=== PATIENT | male | born 1930 | race Caucasian/White ===

== ENCOUNTER 2018-03-07 11:55 | Inpatient (IN) ==
[2018-03-07] MEDS ORDERED: 0.9 % Sodium Chloride 500 ML IVC ONE ×2 (12:06→13:30)
--- NOTE | 2018-03-07 12:39 | Emergency Department Note ---
Disposition Clinical Impression: Upper gastrointestinal hemorrhage, Hiatal hernia, Hyperglycemia, Acute kidney injury GERD (gastroesophageal reflux disease) Qualifiers: Esophagitis presence: esophagitis presence not specified Qualified Code(s): K21.9 - Gastro-esophageal reflux disease without esophagitis Coumarin adverse reaction Qualifiers: Encounter type: initial encounter Qualified Code(s): T45.515A - Adverse effect of anticoagulants, initial encounter Disposition: Admitted As Inpatient Referrals: Jay Silveira MD [Primary Care Provider] - Forms: ED Satisfaction Letter General Adult HPI - General Chief complaint: ED GI Bleed Stated complaint: "vomiting black, stool black" Time Seen by Provider: 03/07/18 12:03 Source: patient, family Mode of arrival: ambulatory Limitations: no limitations Nursing Notes Reviewed: Yes Vital Signs Reviewed: Yes - History of Present Illness HPI Narrative: Patient is an 87-year-old white male with a history of DVT on Coumadin and a baby aspirin daily no prior history of GI bleeding who is brought to the emergency department today by his daughter for an isolated episode of vomiting coffee ground emesis which occurred yesterday at approximately 4 PM followed by tarry black stool for the past 2 days. Patient states he has been struggling with what he defines as dizziness for the past 4-6 weeks and has been seen by his family doctor for this and has referral to neurology pending but states over the past 2-3 days he has been feeling more weak and generally fatigued. Patient denies any chest pain pressure or heaviness, no palpitations, no shortness of breath, no diaphoresis, no abdominal pain or cramping, no flank pain. Patient denies any bowel changes in regards to the consistency of his stool but has had tarry black stool since yesterday. Patient denies any bright red blood per rectum. Patient has never had any GI bleeding or need for a GI specialist. No recent changes to his Coumadin levels. Patient denies any history of falls or trauma. No syncope. Patient appears in no acute distress on initial assessment he is quite talkative interactive and having no pain or discomfort at this time patient's initial vitals were tachycardic but blood pressure while I was in the room was 130/65. Patient states that he has not really had anything to eat since he vomited yesterday at 4:00 and has not taken his morning diabetic medications. Patient's only complaint at this time is that he feels generally weak. Pain Scale: 0 - Related Data Home Medications Medication Instructions Recorded Confirmed Aspirin 81 mg PO DAILY 06/24/15 03/07/18 Carvedilol [Coreg] 3.125 mg PO BIDWM 06/24/15 03/07/18 Ferrous Sulfate 325 mg PO DAILY 06/24/15 03/07/18 Insulin DETEMIR [Levemir] 43 unit SQ BID 06/24/15 03/07/18 Insulin LISPRO [Humalog] 10 unit SQ DAILY 06/24/15 03/07/18 Isosorbide DInitrate [Isosorbide 10 mg PO BID 06/24/15 03/07/18 Dinitrate] LORazepam [Ativan] 0.5 mg PO Q8H PRN 06/24/15 03/07/18 Omeprazole [PriLOSEC] 20 mg PO DAILY 06/24/15 03/07/18 Warfarin [Coumadin] 3 mg PO SUMOTUWEFRSA 06/24/15 03/07/18 Nitroglycerin [Nitrostat] 0.4 mg SL Q5M PRN 03/07/18 03/07/18 Warfarin [Coumadin] 1.5 mg PO TH 03/07/18 03/07/18 Allergies Allergy/AdvReac Type Severity Reaction Status Date / Time ezetimibe [From Zetia] AdvReac Seizure Verified 03/07/18 12:01 lisinopril [From Prinivil] AdvReac Cough Verified 03/07/18 12:01 Hnarcpf-Vaf-Dod Reductase AdvReac Seizure Verified 03/07/18 12:01 Inhibitor [Statins] All systems ED: reviewed and negative except as stated. Review of Systems: As Per HPI Past Medical History - Past Medical History Medical history: Reports: coronary artery disease, DVT, diabetes, GERD, myocardial infarction, renal disease Surgical history: Reports: herniorrhaphy Psychiatric history: Reports: anxiety, panic disorder - Social History Smoking Status: Never smoker Smokeless Tobacco Status: No Alcohol use: Reports: none Drug use: Reports: none Physical Exam - General Limitations: no limitations General appearance: alert, in no apparent distress - Head Head exam: atraumatic, normocephalic, normal inspection - Eye Eye exam: Present: normal appearance, PERRL, EOMI. Absent: scleral icterus - ENT ENT exam: normal exam, normal oropharynx, mucous membranes moist - Neck Neck exam: Present: normal inspection, full ROM. Absent: lymphadenopathy, thyromegaly - Chest Chest inspection: Present: normal inspection, symmetric chest wall rise - Respiratory Respiratory exam: Present: normal lung sounds bilaterally. Absent: respiratory distress, wheezes - Cardiovascular Cardiovascular exam: Present: regular rate, normal rhythm, normal heart sounds - Abdominal Exam Abdominal exam: Present: soft, Non-Tender, normal bowel sounds. Absent: tenderness, distention, guarding, rebound, rigidity - Extremities Exam Extremities exam: Present: normal inspection. Absent: pedal edema, calf tenderness - Back Exam Back exam: Present: normal inspection. Absent: CVA tenderness (R), CVA tenderness (L), paraspinal tenderness, vertebral tenderness, rashes - Neurological Exam Neurological exam: Present: alert, oriented X3, CN II-XII intact, normal gait, reflexes normal. Absent: motor sensory deficit - Psychiatric Psychiatric exam: Present: normal affect, normal mood - Skin Skin exam: Present: warm, dry, intact, normal color, other (No easy bleeding or bruising noted on exam). Absent: rash, diaphoresis Course Course Narrative: Patient is a 87-year-old white male brought by his daughter today for an isolated episode of coffee-ground emesis associated with tarry black stool over the past 48 hours. Patient says this is been associated with gradually worsening generalized weakness and fatigue. Patient denies any symptoms of pain and no bright red blood per rectum. Patient is on aspirin one baby aspirin daily, as well as Coumadin for DVT prevention. Patient with no prior history of GI bleeding or GI intervention. Patient's blood pressure is stable at this time. Orders have been placed including 2 large bore IVs be placed on potline monitor and continuous pulse ox IV fluids initiated and full assessment for GI bleeding initiated. - Reevaluation(s) Reevaluation #1: Patient remains asymptomatic resting comfortably with stable vital signs. When into the rectal exam. Patient has no evidence of hemorrhoids or gross bright red blood per rectum. No rectal masses palpated on internal exam. He should with lack appearing stool that was guaiac positive. Discussed this with patient and daughter. Will add additional IV fluids based on patient's current renal function elevated BUN/creatinine be secondary to upper GI bleeding. Patient made nothing by mouth and will obtain CT scan of the abdomen and pelvis. Notified family that patient will be admitted for further evaluation of GI bleeding. Time: 13:34 Reevaluation #2: Patient remains resting comfortably with daughter at bedside, vital signs are stable. While in the room heart rate was 73 with a stable blood pressure. Patient has received 1 fluid bolus and will receive second. Reviewed results of CAT scan with patient and daughter which was within normal limits. Likely upper GI bleed. Patient is nothing by mouth Coumadin been held. Case was discussed with the hospitalist to accepted the patient for admission. Type and screen is been completed patient remained dynamically stable at this time. Time: 15:18 Vital Signs Temperature 98.1 F 03/07/18 11:57 Pulse Rate 108 03/07/18 11:57 Respiratory Rate 18 03/07/18 11:57 Blood Pressure 143/96 03/07/18 11:57 O2 Sat by Pulse Oximetry 98 03/07/18 11:57 Temperature 98.1 F 03/07/18 11:57 Pulse Rate 102 03/07/18 14:29 Respiratory Rate 18 03/07/18 14:29 Blood Pressure 110/72 03/07/18 14:29 O2 Sat by Pulse Oximetry 96 03/07/18 14:29 Oxygen Delivery Oxygen Delivery Room Air Medical Decision Making - Medical Records Medical records reviewed: Yes I reviewed the patient's medical records. - Lab Data Lab results reviewed: Yes I reviewed the patient's lab results. Result diagrams: 03/07/18 12:34 03/07/18 12:34 Lab Results 03/07/18 03/07/18 03/07/18 Range/Units 12:34 12:34 12:34 WBC 12.3 H (4.3-11.1) K/mcL RBC 3.34 L (4.19-5.50) M/mcL Hgb 10.9 L (12.9-16.9) g/dL Hct 33.0 L (37.5-50.1) % MCV 98.8 (83.0-100.0) fL MCH 32.6 (28.0-33.3) pg MCHC 33.0 (31.6-35.5) g/dL RDW 14.2 (11.5-14.5) % Plt Count 301 (140-400) K/mcL MPV 9.4 (9.4-12.4) fL Immature Gran % 0.5 (0-4) % Seg Neutrophils % 62.7 % Lymphocytes % 21.8 % Monocytes % 8.8 % Eosinophils % 5.6 % Basophils % 0.6 % Neutrophils # 7.7 (1.6-8.9) K/mcL Lymphocytes # 2.7 (0.6-4.6) K/mcL Monocytes # 1.1 (0.0-1.3) K/mcL Eosinophils # 0.7 H (0.0-0.6) K/mcL Basophils # 0.1 (0.0-0.2) K/mcL PT 29.7 H (9.4-12.1) Seconds INR 2.7 APTT 34.5 (26.0-36.0) Seconds Sodium 140 (136-145) mEq/L Potassium 4.6 (3.5-5.1) mEq/L Chloride 104 (98-107) mEq/L Carbon Dioxide 25 (23-29) mEq/L BUN 71 H (8-23) mg/dL Creatinine 2.24 H (0.70-1.30) mg/dL Est GFR ( Amer) 34 L (> 60) Est GFR (Non-Af Amer) 28 L (> 60) BUN/Creatinine Ratio 32 H (6-26) Glucose 270 H (70-105) mg/dL Calculated Osmolality 320 H (280-300) Lactic Acid (0.5-2.2) mmol/L Calcium 10.2 (8.6-10.3) mg/dL Magnesium 1.7 (1.6-2.6) mg/dL Total Bilirubin 0.5 (0.3-1.0) mg/dL AST 18 (13-39) Units/L ALT 19 (7-52) Units/L Alkaline Phosphatase 38 (34-104) Units/L Troponin I < 0.03 (< 0.04) ng/mL Serum Total Protein 6.6 (6.4-8.9) g/dL Albumin 3.9 (3.5-5.7) g/dL Globulin 2.7 (2.4-3.5) g/dL Albumin/Globulin Ratio 1.4 (1.1-2.2) Lipase 11 (11-82) Units/L Blood Type Antibody Screen 03/07/18 03/07/18 Range/Units 12:34 12:34 WBC (4.3-11.1) K/mcL RBC (4.19-5.50) M/mcL Hgb (12.9-16.9) g/dL Hct (37.5-50.1) % MCV (83.0-100.0) fL MCH (28.0-33.3) pg MCHC (31.6-35.5) g/dL RDW (11.5-14.5) % Plt Count (140-400) K/mcL MPV (9.4-12.4) fL Immature Gran % (0-4) % Seg Neutrophils % % Lymphocytes % % Monocytes % % Eosinophils % % Basophils % % Neutrophils # (1.6-8.9) K/mcL Lymphocytes # (0.6-4.6) K/mcL Monocytes # (0.0-1.3) K/mcL Eosinophils # (0.0-0.6) K/mcL Basophils # (0.0-0.2) K/mcL PT (9.4-12.1) Seconds INR APTT (26.0-36.0) Seconds Sodium (136-145) mEq/L Potassium (3.5-5.1) mEq/L Chloride (98-107) mEq/L Carbon Dioxide (23-29) mEq/L BUN (8-23) mg/dL Creatinine (0.70-1.30) mg/dL Est GFR ( Amer) (> 60) Est GFR (Non-Af Amer) (> 60) BUN/Creatinine Ratio (6-26) Glucose (70-105) mg/dL Calculated Osmolality (280-300) Lactic Acid 3.5 H (0.5-2.2) mmol/L Calcium (8.6-10.3) mg/dL Magnesium (1.6-2.6) mg/dL Total Bilirubin (0.3-1.0) mg/dL AST (13-39) Units/L ALT (7-52) Units/L Alkaline Phosphatase (34-104) Units/L Troponin I (< 0.04) ng/mL Serum Total Protein (6.4-8.9) g/dL Albumin (3.5-5.7) g/dL Globulin (2.4-3.5) g/dL Albumin/Globulin Ratio (1.1-2.2) Lipase (11-82) Units/L Blood Type A POSITIVE Antibody Screen NEGATIVE - Radiology Data Radiology results reviewed: Yes I reviewed the patient's radiology results. Chest X-Ray 03/07/18 12:04 IMPRESSION: Chronic findings in the chest without acute airspace disease identified. D/ / Denis Diop / Denis Diop Interpreting Provider: Denis Diop Abdomen/Pelvis CT 03/07/18 13:33 IMPRESSION: 1. No acute intra-abdominal process. 2. Moderate-size sliding hiatal hernia. 3. Quite pronounced subcutaneous fat infiltration in the right paraumbilical anterior abdomen about 10 cm in length and 6 cm wide. Cellulitis possible. D/ / Mookie Tobar MD / Mookie Tobar MD Interpreting Provider: Mookie Tobar MD - EKG Data EKG #1 EKG attestation: Yes I reviewed and interpreted this EKG. EKG results narrative: Patient's EKG shows a normal sinus rhythm with sinus arrhythmia at 90 bpm patient with nonspecific ST changes noted diffusely no focal changes seen. We will attempt to obtain old EKG for comparison. Critical Care Time Critical Care Time: Yes Total Critical Care Time: 35 Attestation: The high probability of a clinically significant, sudden or life threatening deterioration of the [GI] system(s) required my full and direct attention, intervention and personal management. The aggregate critical care time was [35] minutes. This time is in addition to time spent performing reported procedures but includes the following: [x] Data Review and interpretation [x] Patient assessment and monitoring of vital signs [x] Documentation [x] Medication orders and management
[2018-03-07 12:46] LABS: Basophils # 0.1 K/mcL (0.0-0.2); Basophils % 0.6 %; Eosinophils # 0.7 K/mcL (0.0-0.6); Eosinophils % 5.6 %; Hemoglobin 10.9 g/dL (12.9-16.9); Immature Granulocytes % 0.5 % (0-4); Lymphocytes # 2.7 K/mcL (0.6-4.6); Lymphocytes % 21.8 %; Mean Corpuscular Hemoglobin 32.6 pg (28.0-33.3); Mean Corpuscular Volume 98.8 fL (83.0-100.0); Mean Platelet Volume 9.4 fL (9.4-12.4); Monocytes # 1.1 K/mcL (0.0-1.3); Monocytes % 8.8 %; Neutrophils # 7.7 K/mcL (1.6-8.9); Platelet Count 301 K/mcL (140-400); Red Blood Count 3.34 M/mcL (4.19-5.50); Red Cell Distribution Width 14.2 % (11.5-14.5); Segmented Neutrophils % 62.7 %
[2018-03-07 12:53] LABS: INR 2.7; Prothrombin Time 29.7 Seconds (9.4-12.1)
[2018-03-07 12:56] LABS: Activated Partial Thrombo Time 34.5 Seconds (26.0-36.0)
[2018-03-07 13:13] LABS: Troponin I < 0.03 ng/mL (< 0.04)
[2018-03-07 13:17] LABS: Alanine Aminotransferase 19 Units/L (7-52); Albumin 3.9 g/dL (3.5-5.7); Albumin/Globulin Ratio 1.4 (1.1-2.2); Alkaline Phosphatase 38 Units/L (34-104); Aspartate Amino Transferase 18 Units/L (13-39); BUN/Creatinine Ratio 32 (6-26); Bilirubin,Total 0.5 mg/dL (0.3-1.0); Blood Urea Nitrogen 71 mg/dL (8-23); Calcium 10.2 mg/dL (8.6-10.3); Carbon Dioxide 25 mEq/L (23-29); Chloride 104 mEq/L (98-107); Globulin 2.7 g/dL (2.4-3.5); Glucose 270 mg/dL (70-105); Lipase 11 Units/L (11-82); Magnesium 1.7 mg/dL (1.6-2.6); Osmolality,Calculated 320 (280-300); Potassium 4.6 mEq/L (3.5-5.1); Sodium 140 mEq/L (136-145); Total Protein 6.6 g/dL (6.4-8.9); eGFR For African Americans 34 (> 60); eGFR For Non-African Americans 28 (> 60)
[2018-03-07] MEDS ORDERED: Pantoprazole 40 MG VIAL IVP ONE ×2 (13:31→18:25)
[2018-03-07 16:46] LABS: Bilirubin,Urine Negative (Negative); Blood,Urine Negative (Negative); Clarity,Urine Clear (Clear); Color,Urine Yellow (Yellow); Glucose,Urine (UA) Normal (Normal); Ketones,Urine Negative (Negative); Leukocyte Esterase,Urine Negative (Negative); Nitrite,Urine Negative (Negative); PH,Urine 5.5 pH Units (5.0-8.0); Protein,Urine Trace mg/dL (Neg-Trace); Specific Gravity,Urine 1.024 (1.010-1.025); Urobilinogen,Urine Normal (Normal)
[2018-03-07 16:49] LABS: Bacteria,Urine None Seen per hpf (None-Few); Hyaline Casts,Urine None Seen per lpf (None-Few); RBC,Urine 0-3 per hpf (0-3); Squamous Epithelial Cell,Urine Few per lpf (None-Few); WBC,Urine 0-3 per hpf (0-3)
[2018-03-07] MEDS ORDERED: Nitroglycerin 0.4 MG TAB.SUBL SL PRN (18:23)
[2018-03-07] MEDS ORDERED: *HR* LORazepam 0.5 MG TABLET PO PRN (18:23)
[2018-03-07] MEDS ORDERED: D5% in Water 1,000 ML IVC PRN (18:26)
[2018-03-07] MEDS ORDERED: Dextrose Gel 15 GM/37.5 ML TUBE PO PRN ×2 (18:26)
[2018-03-07] MEDS ORDERED: *HR* Dextrose 50 % in Water (Syg) 50 ML SYRINGE IVP PRN (18:26)
[2018-03-07] MEDS ORDERED: traMADol 50 MG TABLET PO PRN (18:30)
[2018-03-07] MEDS ORDERED: Acetaminophen 325 MG TABLET PO PRN (18:30)
[2018-03-07] MEDS ORDERED: Naloxone 0.4 MG/ML INJ IVP PRN (18:30)
--- NOTE | 2018-03-07 18:40 | Internal Med History&Physical ---
<Shaquille Beck - Last Filed: 03/07/18 19:21> Date of Encounter: 03/07/18 Time of Encounter: 18:37 Internal Medicine - H&P: HPI Admitted From: Home Plans for Post Hospital Care: Home History of present illness: Patient is an 87-year-old white male with a history of DVT on Coumadin and a baby aspirin daily no prior history of GI bleeding who is brought to the emergency department today by his daughter for an isolated episode of vomiting coffee ground emesis which occurred yesterday at approximately 4 PM followed by tarry black stool for the past 2 days. Patient states he has been struggling with what he defines as dizziness for the past 4-6 weeks and has been seen by his family doctor for this and has referral to neurology pending but states over the past 2-3 days he has been feeling more weak and generally fatigued. Patient denies any chest pain pressure or heaviness, no palpitations, no shortness of breath, no diaphoresis, no abdominal pain or cramping, no flank pain. Patient denies any bowel changes in regards to the consistency of his stool but has had tarry black stool since yesterday. Patient denies any bright red blood per rectum. Patient has never had any GI bleeding or need for a GI specialist. No recent changes to his Coumadin levels. Patient denies any history of falls or trauma. No syncope. Patient appears in no acute distress on initial assessment he is quite talkative interactive and having no pain or discomfort at this time patient's initial vitals were tachycardic but blood pressure while I was in the room was 130/65. Patient states that he has not really had anything to eat since he vomited yesterday at 4:00 and has not taken his morning diabetic medications. Patient's only complaint at this time is that he feels generally weak. Past Med Surg Social Fam HX - Past Medical History Medical history: coronary artery disease, DVT, diabetes, GERD, myocardial infarction, renal disease Psychiatric history: anxiety - Past Surgical History Surgical History: herniorrhaphy - Social History Smoking Status: Never smoker Smokeless Tobacco Status: No Alcohol use: none Drug use: none - Family History Father Adopted: No Family Member Ethnicity: Non- Living Status: Hx Family Cardiac Disorders: No Hx Family Respiratory Disorders: No Hx Family Cancer: Yes Hx Family GI Disorders: No Hx Family Endocrine Disorder: No Hx Family Neuromuscular Disorders: No Hx Family Neurologic Disorders: No Hx Family HEENT Disorders: No Hx Family Autoimmune Disorders: No Internal Medicine - H&P: Meds Aspirin 81 mg PO DAILY 06/24/15 [History] Carvedilol [Coreg] 3.125 mg PO BIDWM 06/24/15 [History] Ferrous Sulfate 325 mg PO DAILY 06/24/15 [History] Insulin DETEMIR [Levemir] 43 unit SQ BID 06/24/15 [History] Insulin LISPRO [Humalog] 10 unit SQ DAILY 06/24/15 [History] Isosorbide DInitrate [Isosorbide Dinitrate] 10 mg PO BID 06/24/15 [History] LORazepam [Ativan] 0.5 mg PO Q8H PRN 06/24/15 [History] Omeprazole [PriLOSEC] 20 mg PO DAILY 06/24/15 [History] Warfarin [Coumadin] 3 mg PO SUMOTUWEFRSA 06/24/15 [History] Nitroglycerin [Nitrostat] 0.4 mg SL Q5M PRN 03/07/18 [History] Warfarin [Coumadin] 1.5 mg PO TH 03/07/18 [History] 3 Allergy/AdvReac Type Severity Reaction Status Date / Time ezetimibe [From Zetia] AdvReac Seizure Verified 03/07/18 12:01 lisinopril [From Prinivil] AdvReac Cough Verified 03/07/18 12:01 Oupgtai-Qzr-Wcy Reductase AdvReac Seizure Verified 03/07/18 12:01 Inhibitor [Statins] All Systems PM: A 10-system review of systems was performed and is negative for pertinent findings except as documented above in the HPI. Review of systems: REVIEW OF SYSTEMS: CONSTITUTIONAL: No weight loss, fever, chills, weakness or fatigue. HEENT: Eyes: No visual loss, blurred vision, double vision or yellow sclerae. Ears, Nose, Throat: No hearing loss, sneezing, congestion, runny nose or sore throat. SKIN: No rash or itching. CARDIOVASCULAR: No chest pain, chest pressure or chest discomfort. No palpitations or edema. RESPIRATORY: No shortness of breath, cough or sputum. GASTROINTESTINAL: No anorexia, nausea, vomiting or diarrhea. No abdominal pain or blood. GENITOURINARY: No dysuria, urgency, or frequency. NEUROLOGICAL: No headache, dizziness, syncope, paralysis, ataxia, numbness or tingling in the extremities. No change in bowel or bladder control. MUSCULOSKELETAL: No muscle, back pain, joint pain or stiffness. HEMATOLOGIC: No anemia, bleeding or bruising. LYMPHATICS: No enlarged nodes. No history of splenectomy. PSYCHIATRIC: No history of depression or anxiety. ENDOCRINOLOGIC: No reports of sweating, cold or heat intolerance. No polyuria or polydipsia. - Constitutional Vitals: Temp Pulse Resp BP Pulse Ox 97.7 F 84 15 127/74 95 03/07/18 17:22 03/07/18 17:22 03/07/18 17:22 03/07/18 17:22 03/07/18 17:22 General appearance: Present: A&O X 3 Exam: PHYSICAL EXAMINATION: GENERAL APPEARANCE: The patient is alert, oriented and in no acute distress. HEENT: Head is normocephalic. The sinuses are nontender. Pupils are equal and reactive. The nares are patent. Oropharynx clear without lesions. NECK: Supple without lymphadenopathy. HEART: Regular rate and rhythm. LUNGS: No crackles or wheezes are heard. ABDOMEN: Soft, nontender, nondistended with good bowel sounds heard. Inguinal area is normal. EXTREMITIES: Without cyanosis, clubbing or edema. NEUROLOGICAL: Gross nonfocal. SKIN: Warm and dry without any rash. Internal Med - H&P Results - Labs CBC & Chem 7: 03/07/18 18:58 03/07/18 12:34 - Assessment and plan (1) Upper GI bleed Current Visit: Yes Status: Acute Assessment and plan: - Last EGD and colonoscopy were done about 3-4 years ago, reportedly was normal per patient. - Takes iron supplement due to chronic anemia at home, therefore, fecal occult blood test was not a reliable read. However, BUN was significantly elevated (70 ) above baseline (30-40), which was suggestive of GI bleeding. - INR 2.6, hold Coumadin and aspirin. No need to reverse INR now. - Received Protonix IV 40 at ED, will give another 40 mg bolus, start Protonix 40 mg twice a day IV from tomorrow. - Continue IV fluid. Monitor BP every 4 hours, monitor H/H every 8 hours, transfuse if hemoglobin less than 7. - GI consult. (2) CKD (chronic kidney disease) stage 3, GFR 30-59 ml/min Current Visit: No Status: Chronic Assessment and plan: - Creatinine at baseline. (3) Elevated lactic acid level Current Visit: Yes Status: Acute Assessment and plan: - Continue IV fluid, repeat lactic acid is 6 hours. (4) GERD (gastroesophageal reflux disease) Current Visit: No Status: Chronic Qualifiers: Esophagitis presence: esophagitis presence not specified Qualified Code(s) : K21.9 - Gastro-esophageal reflux disease without esophagitis (5) DVT (deep venous thrombosis) Current Visit: No Status: Chronic Assessment and plan: - Hold Coumadin for now due to GI bleeding. Qualifiers: DVT location: lower extremity Affected thrombotic vein of extremity: unspecified vein of extremity Chronicity: chronic Laterality: unspecified laterality Qualified Code(s): I82.509 - Chronic embolism and thrombosis of unspecified deep veins of unspecified lower extremity (6) Diabetes mellitus Current Visit: No Status: Chronic Assessment and plan: - Decrease home laminal to 20 units twice a day, continue insulin sliding scale , adjust insulin dose as needed. 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 Villaseñor is a 87 year old male All Systems PM: A 10-system review of systems was performed and is negative for pertinent findings except as documented above in the HPI. - Constitutional Vitals: Temp Pulse Resp BP Pulse Ox 97.7 F 91 18 141/71 96 03/08/18 04:18 03/08/18 04:18 03/08/18 04:18 03/08/18 04:18 03/08/18 04:18 Internal Med - H&P Results - Labs CBC & Chem 7: 03/08/18 03:09 03/08/18 03:09 Labs: Short CBC 03/07/18 03/08/18 Range/Units 18:58 03:09 WBC 9.8 (4.3-11.1) K/mcL Hgb 10.2 L 8.3 L D (12.9-16.9) g/dL Hct 31.1 L 25.2 L (37.5-50.1) % Plt Count 240 (140-400) K/mcL Neutrophils # 5.2 (1.6-8.9) K/mcL BMP 03/08/18 03:09 Sodium 142 Potassium 4.0 Chloride 108 H Carbon Dioxide 26 BUN 59 H Creatinine 2.02 H Glucose 192 H Calcium 9.1 Liver Function 03/08/18 Range/Units 03:09 Total Bilirubin 0.3 (0.3-1.0) mg/dL AST 16 (13-39) Units/L ALT 17 (7-52) Units/L Alkaline Phosphatase 35 (34-104) Units/L Albumin 3.3 L (3.5-5.7) g/dL - Attending Attestation I have seen and examined this patient independently. I have discussed with DEANDRE Beck regarding the management plan. Agree with the documentation. - Assessment and plan (1) DVT (deep venous thrombosis) Current Visit: No Status: Chronic Qualifiers: DVT location: lower extremity Affected thrombotic vein of extremity: unspecified vein of extremity Chronicity: chronic Laterality: unspecified laterality Qualified Code(s): I82.509 - Chronic embolism and thrombosis of unspecified deep veins of unspecified lower extremity (2) GERD (gastroesophageal reflux disease) Current Visit: No Status: Inactive Qualifiers: Esophagitis presence: esophagitis presence not specified Qualified Code(s) : K21.9 - Gastro-esophageal reflux disease without esophagitis (3) Upper GI bleed Current Visit: Yes Status: Acute (4) CKD (chronic kidney disease) stage 3, GFR 30-59 ml/min Current Visit: No Status: Chronic (5) Elevated lactic acid level Current Visit: Yes Status: Acute (6) Diabetes mellitus Current Visit: No Status: Chronic Qualifiers: Diabetes mellitus type: type 2 Diabetes mellitus mcfp insulin use: with mcfp use Diabetes mellitus complication status: without complication Qualified Code(s): E11.9 - Type 2 diabetes mellitus without complications; Z79.4 - nursing home (current) use of insulin; Z79.4 - nursing home ( current) use of insulin; Z79.4 - terminal operator (current) use of insulin; Z79.4 - nursing home (current) use of insulin - Time Spent With Patient Total time spent is greater than 50% in coordination of care (as documented) at patient's floor/unit and/or counseling patient:
[2018-03-07] MEDS: 0.9 % Sodium Chloride 1,000 ML IVC SCH (18:49)
[2018-03-07 19:12] LABS: Hematocrit 31.1 % (37.5-50.1); Hemoglobin 10.2 g/dL (12.9-16.9)
[2018-03-07] MEDS: Insulin DETEMIR 100 UNIT/ML X5UNITS SQ SCH (21:27)
[2018-03-07] MEDS: Insulin LISPRO 300 UNITS/3 ML VIAL SQ SCH (21:31)
[2018-03-07] MEDS ORDERED: 0.9 % Sodium Chloride 250 ML ONE (22:23)
[2018-03-08 03:25] LABS: Basophils % 0.4 %; Eosinophils # 0.6 K/mcL (0.0-0.6); Eosinophils % 6.1 %; Hematocrit 25.2 % (37.5-50.1); Hemoglobin 8.3 g/dL (12.9-16.9); Immature Granulocytes % 0.5 % (0-4); Mean Corpuscular HGB Conc 32.9 g/dL (31.6-35.5); Mean Corpuscular Hemoglobin 32.7 pg (28.0-33.3); Mean Corpuscular Volume 99.2 fL (83.0-100.0); Mean Platelet Volume 9.3 fL (9.4-12.4); Monocytes # 0.9 K/mcL (0.0-1.3); Monocytes % 8.7 %; Neutrophils # 5.2 K/mcL (1.6-8.9); Nucleated Red Blood Cells 0.2 /100 WBC (0); Platelet Count 240 K/mcL (140-400); Red Blood Count 2.54 M/mcL (4.19-5.50); Red Cell Distribution Width 14.2 % (11.5-14.5); Segmented Neutrophils % 53.3 %
[2018-03-08 03:46] LABS: Albumin 3.3 g/dL (3.5-5.7); Albumin/Globulin Ratio 1.4 (1.1-2.2); Bilirubin,Total 0.3 mg/dL (0.3-1.0); Calcium 9.1 mg/dL (8.6-10.3); Globulin 2.3 g/dL (2.4-3.5); Total Protein 5.6 g/dL (6.4-8.9)
[2018-03-08 06:38] LABS: INR 2.3; Prothrombin Time 25.4 Seconds (9.4-12.1)
[2018-03-08] MEDS: Insulin LISPRO 300 UNITS/3 ML VIAL SQ SCH ×4 (07:27→21:47)
[2018-03-08] MEDS ORDERED: Pantoprazole 40 MG VIAL IVP SCH (09:00)
[2018-03-08] MEDS ORDERED: 0.9 % Sodium Chloride 250 ML ONE ×2 (10:25→13:28)
[2018-03-08] MEDS: Insulin DETEMIR 100 UNIT/ML X5UNITS SQ SCH ×2 (10:44→21:43)
[2018-03-08] MEDS: Pantoprazole 40 MG in 0.9 % Sodium Chloride Mini Bag 100 ML IVC SCH ×3 (11:08→21:43)
[2018-03-08] MEDS: 0.9 % Sodium Chloride 1,000 ML IVC SCH (11:56)
--- NOTE | 2018-03-08 12:00 | Gastroenterology Consult Note ---
<Bethany Monet - Last Filed: 03/08/18 16:17> Date of Encounter: 03/08/18 Time of Encounter: 10:30 - Assessment and plan (1) Upper GI bleed Current Visit: Yes Status: Acute Assessment and plan: Pt is on coumadin and asa at home, has been held. Will start PPI drip. He needs EGD to rule out MW tear, AVM, vs bleeding peptic ulcer, but INR is 2.3. Will give 2 units FFP and recheck iNR. Plan for EGD today. (2) Alva esophagus Current Visit: Yes Status: Acute Assessment and plan: Last scope was in 2014, needs repeat. 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 - Time Spent With Patient Total time spent is greater than 50% in coordination of care (as documented) at patient's floor/unit and/or counseling patient: GI History of Present Illness - Data of Consult Patient: new to practice Consult date: 03/08/18 Requesting Physician: Jesus Zambrano MD - Consult Narrative Reason for consult: coffee ground emesis History of present illness: Patient is an 87-year-old white male with a history of DVT on Coumadin and a baby aspirin daily no prior history of GI bleeding who is brought to the emergency department today by his daughter for an isolated episode of vomiting coffee ground emesis which occurred the day before admission and was followed by tarry black stool for 2 days. He also reported dizziness for the past 4-6 weeks and has been seen by his family doctor for this and has referral to neurology pending but states over the past 2-3 days he has been feeling more weak and generally fatigued. Patient denies any chest pain pressure or heaviness, no palpitations, no shortness of breath, no diaphoresis, no abdominal pain or cramping, no flank pain. Patient denies any bright red blood per rectum. He denies history of GI bleed but does have a history of alva's esophagus per his daughter. He states he feels much better, is denying any abdominal, or chest pain, he denies further nausea or vomiting or diarrhea. Hgb 10.9 on admision dropped to 8.3, iNR 2.3 EGD: 03/28 [facility], alva's esophagus Colon: 5 year ago per pt, records not found NSAIDS: asa 81 mg anticoagulants: coumadin Past Med Surg Social Fam HX - Past Medical History Medical history: coronary artery disease, DVT, diabetes, GERD, myocardial infarction, renal disease Psychiatric history: anxiety - Past Surgical History Surgical History: herniorrhaphy - Social History Smoking Status: Never smoker Smokeless Tobacco Status: No Alcohol use: none Drug use: none - Family History Father Adopted: No Family Member Ethnicity: Non- Living Status: Hx Family Cardiac Disorders: No Hx Family Respiratory Disorders: No Hx Family Cancer: Yes Hx Family GI Disorders: No Hx Family Endocrine Disorder: No Hx Family Neuromuscular Disorders: No Hx Family Neurologic Disorders: No Hx Family HEENT Disorders: No Hx Family Autoimmune Disorders: No Review of Systems: GI: as per [facility] GENERAL: denies fever, or chills EYES: denies yellow discoloration ENT: denies pain with swallowing or difficulty swallowing CARDIO: denies chest pain, palpitations RESP: Shortness of breath with exertion : denies change in color of urine NEURO: weakness and fatigue HEME: Denies any bruising MS: denies joint pain, joint swelling or back pain. DERM: denies rash or itching PSYCH: history of anxiety and depression - Constitutional Vitals: Temp Pulse Resp BP Pulse Ox 97.7 F 71 18 116/59 92 03/08/18 11:47 03/08/18 11:47 03/08/18 11:47 03/08/18 11:47 03/08/18 11:47 Exam: CONSTITUTIONAL:~alert, no acute distress.~HEAD:~normocephalic.~EYES:~no jaundice.~NECK:~no obvious swelling.~HEART:~regular rate and rhythm, no murmurs. ~LUNGS:~bilateral good air entry.~ABDOMEN:~non distended, soft, non tender, no masses palpable, no organomegaly.~RECTAL EXAM:~Deferred.~EXTREMITIES:~no clubbing, cyanosis or edema.~SKIN:~pallor noted, no stigmata of chronic liver disease.~NEUROLOGIC:~no obvious focal defect.~~~~ Results - Labs CBC & Chem 7: 03/08/18 13:17 03/08/18 03:09 Labs: Last Result Calcium 9.1 mg/dL (8.6-10.3) 03/08/18 03:09 Troponin I < 0.03 ng/mL (< 0.04) 03/07/18 12:34 Entire Visit Hgb 8.3 g/dL (12.9-16.9) L D 03/08/18 03:09 Hct 25.2 % (37.5-50.1) L 03/08/18 03:09 PT 25.4 Seconds (9.4-12.1) H 03/08/18 06:24 Total Bilirubin 0.3 mg/dL (0.3-1.0) 03/08/18 03:09 AST 16 Units/L (13-39) 03/08/18 03:09 ALT 17 Units/L (7-52) 03/08/18 03:09 Lipase 11 Units/L (11-82) 03/07/18 12:34 - ABG ABG results: PT/INR, D-dimer PT 25.4 Seconds (9.4-12.1) H 03/08/18 06:24 Consult Discharge Plan - Plan Referrals: Jay Silveira MD [Primary Care Provider] - (web request sent on 03/08/18) <Pamela Ochoa - Last Filed: 03/08/18 20:21> Date of Encounter: 03/08/18 Time of Encounter: 18:00 - Time Spent With Patient Total time spent is greater than 50% in coordination of care (as documented) at patient's floor/unit and/or counseling patient: GI History of Present Illness - Data of Consult Requesting Physician: Jesus Zambrano MD - Consult Narrative History of present illness: Mr. Villaseñor is a 87 year old male - Constitutional Vitals: Temp Pulse Resp BP Pulse Ox 98.2 F 79 16 139/76 92 03/08/18 15:48 03/08/18 20:05 03/08/18 20:05 03/08/18 20:05 03/08/18 20:05 Results - Labs CBC & Chem 7: 03/08/18 13:17 03/08/18 03:09 Labs: Last Result Calcium 9.1 mg/dL (8.6-10.3) 03/08/18 03:09 Troponin I < 0.03 ng/mL (< 0.04) 03/07/18 12:34 Entire Visit Hgb 9.4 g/dL (12.9-16.9) L 03/08/18 13:17 Hct 28.8 % (37.5-50.1) L 03/08/18 13:17 PT 20.4 Seconds (9.4-12.1) H 03/08/18 15:40 Total Bilirubin 0.3 mg/dL (0.3-1.0) 03/08/18 03:09 AST 16 Units/L (13-39) 03/08/18 03:09 ALT 17 Units/L (7-52) 03/08/18 03:09 Lipase 11 Units/L (11-82) 03/07/18 12:34 - ABG ABG results: PT/INR, D-dimer PT 20.4 Seconds (9.4-12.1) H 03/08/18 15:40 - Attending Attestation I have personally performed a face to face evaluation on this patient. I have reviewed and agree with the care plan. History and Exam by me shows: Patient with the lower GI bleed with melena and coagulopathy because of being on Coumadin. Has been given FFP. Recommendation: Patient will have an EGD done today. Continue PPI.
[2018-03-08 13:42] LABS: Hematocrit 28.8 % (37.5-50.1); Hemoglobin 9.4 g/dL (12.9-16.9)
[2018-03-08 14:28] LABS: INR 1.9; Prothrombin Time 20.8 Seconds (9.4-12.1)
[2018-03-08 16:03] LABS: INR 1.9; Prothrombin Time 20.4 Seconds (9.4-12.1)
[2018-03-08] MEDS ORDERED: *HR* FentaNYL (PF) 100 MCG/2 ML VIAL ONE (19:47)
[2018-03-08] MEDS ORDERED: *HR* Midazolam HCl 5 MG/5 ML VIAL IVP ONE (19:47)
[2018-03-08] MEDS ORDERED: *HR* FentaNYL (PF) 100 MCG/2 ML VIAL IVP ONE (20:21)
[2018-03-08] MEDS ORDERED: Simethicone 40 MG/0.6 ML MLS IR ONE (20:21)
[2018-03-08] MEDS ORDERED: Tetracaine/Benzocaine/Butamben 200MG/SPRAY (100SPY/BOT) MM ONE (20:21)
[2018-03-08] MEDS ORDERED: *HR* Midazolam HCl 2 MG/2 ML VIAL IVP ONE (20:21)
--- NOTE | 2018-03-08 20:21 | Pre-Sedation Evaluation ---
Pre-sedation evaluation - Pre-sedation checklist Date of procedure: 03/08/18 Procedure: LEFT HEART CATH Recent Vitals: Last Vital Signs Temp 98.2 F 03/08/18 15:48 Pulse 84 03/08/18 20:18 Resp 16 03/08/18 20:18 BP 143/72 03/08/18 20:18 Pulse Ox 98 03/08/18 20:18 H&P (including ROS) documented in medical record: Yes Previous reaction to sedatives/anesthetics: No Dietary Status: NPO after Midnight Dentition: No loose teeth or bridges ASA Classification *see protocol: CLASS III-Severe systemic disease Plan of Care: Pt appropriate candidate for procedure/moderate/conscious sedation , Risks/benefits of procedure/sedation discussed w/ patient/family
--- NOTE | 2018-03-08 22:05 | Internal Med Progress Note ---
Date of Encounter: 03/08/18 Time of Encounter: 17:47 - Assessment and plan (1) Upper GI bleed Current Visit: Yes Status: Acute Assessment and plan: GI consulted; appreciate input. Plan for EGD tonight. Continue to hold Coumadin and aspirin. Continue protonix drip. Continue IV fluid. Will defer diet after endoscopy to GI. Repeat BMP, CBC, PT/PTT/INR in AM. (2) GERD (gastroesophageal reflux disease) Current Visit: Yes Status: Chronic Assessment and plan: Hold home omeprazole. Continue protonix drip as per above. Qualifiers: Esophagitis presence: esophagitis presence not specified Qualified Code(s) : K21.9 - Gastro-esophageal reflux disease without esophagitis (3) CKD (chronic kidney disease) stage 3, GFR 30-59 ml/min Current Visit: No Status: Chronic Assessment and plan: Creatinine at baseline. Continue to monitor. Recheck BMP in AM. (4) Elevated lactic acid level Current Visit: Yes Status: Resolved Assessment and plan: Resolved. 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 Continue home levemir at reduced dose of 20 units BID. 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 insulin use: with predatory animal exterminator use Diabetes mellitus complication status: without complication Qualified Code(s): E11.9 - Type 2 diabetes mellitus without complications; Z79.4 - tank terminal gauger (current) use of insulin; Z79.4 - tank terminal gauger ( current) use of insulin; Z79.4 - tank terminal gauger (current) use of insulin; Z79.4 - tank terminal gauger (current) use of insulin - Time Spent With Patient Total time spent is greater than 50% in coordination of care (as documented) at patient's floor/unit and/or counseling patient: 25 - 35 minutes - Subjective Interval history: Patient had no acute events overnight. He states that he feels better today. He wants to eat something and wants to go home. I advised him that he is scheduled to have endoscopy tonight. He denies chest pain, SOB, abdominal pain , nausea, vomiting, or diarrhea. He has no complaints. - Constitutional Vitals: Temp Pulse Resp BP Pulse Ox 97.8 F 75 17 123/72 93 03/08/18 21:11 03/08/18 21:11 03/08/18 21:11 03/08/18 21:11 03/08/18 21:11 General appearance: Present: cooperative, A&O X 3, pleasant, no acute distress, answers questions appropriately - Respiratory Respiratory exam: Present: CTAB. Absent: accessory muscle use, rales, rhonchi, wheezes Additional comments: Normal WOB - Cardiovascular Cardiovascular exam: Present: RRR, +S1, +S2. Absent: diastolic murmur, gallop, rubs, systolic murmur Additional comments: No BLE edema - GI/Abdominal GI/Abdominal exam: Present: normal bowel sounds, soft. Absent: distended, hepatomegaly, mass, splenomegaly, tenderness - Psychiatric Psychiatric exam: Present: normal affect, normal mood. Absent: agitated, anxious, depressed - Skin Skin exam: Present: dry, intact, warm. Absent: cyanosis, rash Internal Medicine: Result - Labs CBC & Chem 7: 03/08/18 13:17 03/08/18 03:09 Labs: Short CBC 03/08/18 03/08/18 Range/Units 03:09 13:17 WBC 9.8 (4.3-11.1) K/mcL Hgb 8.3 L D 9.4 L (12.9-16.9) g/dL Hct 25.2 L 28.8 L (37.5-50.1) % Plt Count 240 (140-400) K/mcL Neutrophils # 5.2 (1.6-8.9) K/mcL BMP 03/08/18 03:09 Sodium 142 Potassium 4.0 Chloride 108 H Carbon Dioxide 26 BUN 59 H Creatinine 2.02 H Glucose 192 H Calcium 9.1 Liver Function 03/08/18 Range/Units 03:09 Total Bilirubin 0.3 (0.3-1.0) mg/dL AST 16 (13-39) Units/L ALT 17 (7-52) Units/L Alkaline Phosphatase 35 (34-104) Units/L Albumin 3.3 L (3.5-5.7) g/dL - ABG Interpretation ABG results: PT/INR, D-dimer PT 20.4 Seconds (9.4-12.1) H 03/08/18 15:40 - VTE Reasons for not Prescribing Prophylaxis: Medical contraindication (Upper GI Bleed) Consult Discharge Plan - Plan Referrals: Jay Silveira MD [Primary Care Provider] - (web request sent on 03/08/18)
[2018-03-09] MEDS: Pantoprazole 40 MG in 0.9 % Sodium Chloride Mini Bag 100 ML IVC SCH ×4 (03:32→15:14)
[2018-03-09 05:30] LABS: Hematocrit 24.2 % (37.5-50.1); Hemoglobin 7.9 g/dL (12.9-16.9); Immature Granulocytes % 0.4 % (0-4); Lymphocytes % 28.6 %; Mean Corpuscular HGB Conc 32.6 g/dL (31.6-35.5); Mean Corpuscular Hemoglobin 32.5 pg (28.0-33.3); Mean Corpuscular Volume 99.6 fL (83.0-100.0); Mean Platelet Volume 9.6 fL (9.4-12.4); Platelet Count 235 K/mcL (140-400); Red Blood Count 2.43 M/mcL (4.19-5.50); Red Cell Distribution Width 14.1 % (11.5-14.5); Segmented Neutrophils % 51.5 %
[2018-03-09 05:31] LABS: Basophils # 0.1 K/mcL (0.0-0.2); Basophils % 0.6 %; Eosinophils # 0.7 K/mcL (0.0-0.6); Eosinophils % 8.8 %; Lymphocytes # 2.2 K/mcL (0.6-4.6); Monocytes # 0.8 K/mcL (0.0-1.3); Monocytes % 10.1 %
[2018-03-09 05:34] LABS: INR 1.8; Prothrombin Time 19.5 Seconds (9.4-12.1)
[2018-03-09 05:37] LABS: Activated Partial Thrombo Time 30.9 Seconds (26.0-36.0)
[2018-03-09 05:45] LABS: Calcium 8.4 mg/dL (8.6-10.3); Potassium 3.7 mEq/L (3.5-5.1)
[2018-03-09] MEDS: Insulin LISPRO 300 UNITS/3 ML VIAL SQ SCH ×4 (08:27→20:57)
[2018-03-09] MEDS: Insulin DETEMIR 100 UNIT/ML X5UNITS SQ SCH ×2 (08:31→20:58)
--- NOTE | 2018-03-09 11:09 | Oncology Inp Consult Note ---
<Ana Maria Farrell L - Last Filed: 03/09/18 15:17> Date of Encounter: 03/09/18 Time of Encounter: 11:09 Assessment and Plan (1) Upper GI bleed Status: Acute Assessment and plan: Hgb 8.9 today s/p 3 units PRBC. Continue to monitor. Denies melena/hematochezia since admission B12 and folate replete. Awaiting iron studies Reports dizziness and fatigue which has stabilized since admission, slightly improving (2) Esophageal mass Status: Acute Assessment and plan: EGD on 03/08/18 revealed a medium sized, fungating, ulcerative mass with stigmata of recent bleeding in the lower third esophagus, with appearance concerning for malignancy. EGD also located a medium sized hiatal hernia and long segment of Thompson's esophagus. Pathology pending. Mostly asymptomatic other than report of long standing GERD, which has recently appeared to have worsened. Discussed EGD results with patient and patients daughter at bedside today. CT abdomen without contrast with no acute findings or findings suspicious for metastases. Patient cannot have IV CT contrast due to Stage III CKD. Plan to obtain PET/CT once final path report resulted on an outpatient basis for further staging workup. Patient will have further follow up arranged with Dr. Auguste following discharge. (3) DVT (deep venous thrombosis) Status: Chronic Assessment and plan: History of DVT over 20 years prior. Patient has been on coumadin since this time. No active s/s DVT/PE. Coumadin on hold with esophageal mass with stigmata of bleeding/recent active upper GI bleed. Please refer to Dr. Auguste's attestation below for additional details. Qualifiers: DVT location: lower extremity Affected thrombotic vein of extremity: unspecified vein of extremity Chronicity: chronic Laterality: unspecified laterality Qualified Code(s): I82.509 - Chronic embolism and thrombosis of unspecified deep veins of unspecified lower extremity - Data of Consult Patient: new to practice Consult date: 03/09/18 Requesting Physician: Jesus Zambrano MD Primary Care Provider: Jay Silveira MD - Consult Narrative Reason for consult: Esophageal mass History of present illness: Mr. Villaseñor is a 87 year old male with past medical history significant for coronary artery disease, DVT, diabetes, GERD, myocardial infarction, renal disease and anxiety, presented to ER on 03/07/2018 following one episode of coffee ground emesis along with melena x2 days prior. He also reported weakness , positional vertigo and generalized fatigue over the past 3-4 weeks prior. EGD on 03/08/18 revealed a medium sized, fungating, ulcerative mass with stigmata of recent bleeding in the lower third esophagus, with appearance concerning for malignancy. EGD also located a medium sized hiatal hernia and long segment of Thompson's esophagus. Pathology pending. Mr. Villaseñor appears to be quite active for his age. 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 He states he doesn't play tennis anymore but stays active around the house and helps his with all the shopping, etc. He has never smoked, no history of regular or heavy alcohol use. He denies prior nausea vomiting, bowel habit changes, odynophagia, dysphagia, appetite changes or unintended weight loss. He states he has a history of Thompson's esophagus along with a history of GERD and has taken antacids for a number of years. He has been on coumadin for a number of years following 2 incidents of DVT. He states his first DVT in the LLE was in 1978 (patients daughter states the ?), following by a RLE DVT 1-2 years later. He has been on coumadin since this time. Past Med Surg Social Fam HX - Past Medical History Medical history: coronary artery disease, DVT, diabetes, GERD, myocardial infarction, renal disease Psychiatric history: anxiety - Past Surgical History Surgical History: herniorrhaphy - Social History Smoking Status: Never smoker Smokeless Tobacco Status: No Alcohol use: none Drug use: none - Family History Father Adopted: No Family Member Ethnicity: Non- Living Status: Hx Family Cardiac Disorders: No Hx Family Respiratory Disorders: No Hx Family Cancer: Yes Hx Family GI Disorders: No Hx Family Endocrine Disorder: No Hx Family Neuromuscular Disorders: No Hx Family Neurologic Disorders: No Hx Family HEENT Disorders: No Hx Family Autoimmune Disorders: No Medications and Allergies Aspirin 81 mg PO DAILY 06/24/15 [History] Carvedilol [Coreg] 3.125 mg PO BIDWM 06/24/15 [History] Ferrous Sulfate 325 mg PO DAILY 06/24/15 [History] Insulin DETEMIR [Levemir] 43 unit SQ BID 06/24/15 [History] Insulin LISPRO [Humalog] 10 unit SQ DAILY 06/24/15 [History] Isosorbide DInitrate [Isosorbide Dinitrate] 10 mg PO BID 06/24/15 [History] LORazepam [Ativan] 0.5 mg PO Q8H PRN 06/24/15 [History] Omeprazole [PriLOSEC] 20 mg PO DAILY 06/24/15 [History] Warfarin [Coumadin] 3 mg PO [id number] 06/24/15 [History] Nitroglycerin [Nitrostat] 0.4 mg SL Q5M PRN 03/07/18 [History] Warfarin [Coumadin] 1.5 mg PO TH 03/07/18 [History] 3 Allergy/AdvReac Type Severity Reaction Status Date / Time ezetimibe [From Zetia] AdvReac Seizure Verified 03/07/18 12:01 lisinopril [From Prinivil] AdvReac Cough Verified 03/07/18 12:01 Fhobsyy-Yku-Pur Reductase AdvReac Seizure Verified 03/07/18 12:01 Inhibitor [Statins] Constitutional: Present: as per HPI, fatigue, weakness. Absent: anorexia, chills, fever(s), frequent falls, headache(s), weight loss Eyes: Absent: change in vision Nose, mouth and throat: Present: as per HPI, disequilibrium, dizziness. Absent : dysphagia, headache(s), odynophagia Cardiovascular: Absent: chest pain Respiratory: Absent: cough, dyspnea Gastrointestinal: Present: as per HPI, heartburn, hematemesis, melena. Absent: abdominal pain, nausea Additional comments: denies melena or hematemesis since admission Additional comments: denies dysuria or hematuria Musculoskeletal: Present: muscle weakness Integumentary: Absent: wounds Neurological: Present: as per HPI, disequilibrium, dizziness. Absent: focal weakness, frequent falls, headache(s), numbness, tingling Psychiatric: Present: anxiety Hematologic/Lymphatic: Present: as per HPI Oncology - Exam - Constitutional Vitals: Temp Pulse Resp BP Pulse Ox 97.5 F L 84 17 134/72 97 03/09/18 10:40 03/09/18 10:40 03/09/18 10:40 03/09/18 10:40 03/09/18 10:40 General appearance: cooperative, no acute distress, no febrile - Head Head exam: Present: atraumatic - ENT ENT exam: Present: mucous membranes moist - Respiratory Respiratory exam: Present: CTAB. Absent: respiratory distress - Cardiovascular Cardiovascular exam: Present: RRR, +S1, +S2 - GI/Abdominal GI/Abdominal exam: Present: normal bowel sounds, soft. Absent: tenderness - Extremities Exam Extremities exam: Present: normal inspection. Absent: calf tenderness - Neurological Exam Neurological exam: Present: alert, oriented X3, no focal deficits, strengths equal and symetr throughout - Psychiatric Psychiatric exam: Present: normal affect, normal mood - Skin Skin exam: Present: dry, intact, normal color, warm Oncology - Results Labs: Short CBC 03/08/18 03/09/18 Range/Units 13:17 04:26 WBC 7.8 (4.3-11.1) K/mcL Hgb 9.4 L 7.9 L D (12.9-16.9) g/dL Hct 28.8 L 24.2 L (37.5-50.1) % Plt Count 235 (140-400) K/mcL Neutrophils # 4.0 (1.6-8.9) K/mcL BMP 03/09/18 04:26 Sodium 143 Potassium 3.7 Chloride 110 H Carbon Dioxide 26 BUN 37 H Creatinine 1.76 H Glucose 160 H Calcium 8.4 L Consult Discharge Plan - Plan Referrals: Jay Silveira MD [Primary Care Provider] - (web request sent on 03/08/18) <Monica Anthony - Last Filed: 03/09/18 19:16> Date of Encounter: 03/09/18 - Data of Consult Requesting Physician: Jesus Zambrano MD Primary Care Provider: Jay Silveira MD - Consult Narrative History of present illness: HGb/Hct monitor. TRansfuse as necessary. Anemia w/u ordered. Will discuss bx results once available. Pt and daughter are agreeable for RX locally at [facility].I examined this patient and my medical decision-making was reviewed with the Advanced Practice Nurse, Ana Maria Farrell. I agree with the documented findings, disposition and treatment plan as described except to the extent set forth below. Oncology - Exam - Constitutional Vitals: Temp Pulse Resp BP Pulse Ox 97.8 F 80 17 116/70 95 03/09/18 15:08 03/09/18 15:08 03/09/18 15:08 03/09/18 15:08 03/09/18 15:08 Oncology - Results Labs: Short CBC 03/09/18 03/09/18 03/09/18 Range/Units 04:26 11:13 12:32 WBC 7.8 (4.3-11.1) K/mcL Hgb 7.9 L D 8.8 L 8.9 L (12.9-16.9) g/dL Hct 24.2 L 26.9 L 27.0 L (37.5-50.1) % Plt Count 235 (140-400) K/mcL Neutrophils # 4.0 (1.6-8.9) K/mcL BMP 03/09/18 04:26 Sodium 143 Potassium 3.7 Chloride 110 H Carbon Dioxide 26 BUN 37 H Creatinine 1.76 H Glucose 160 H Calcium 8.4 L
--- NOTE | 2018-03-09 11:44 | Gastroenterology Progress Note ---
<Bethany Monet - Last Filed: 03/09/18 11:41> Date of Encounter: 03/09/18 Time of Encounter: 10:05 - Assessment and plan (1) Esophageal mass Current Visit: Yes Status: Acute Assessment and plan: Likely malignant, pathology pending, oncology consulted. (2) Anemia Current Visit: Yes Status: Acute Assessment and plan: Upper GI bleed due to esophageal mass. Hgb has dropped to 7.9 today, monitor H&H , transfuse as needed. 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 He denies any abdominal pain, nausea, vomiting , diarrhea. EGD showed fungating mass at lower esophagus, likely malignant pathology pending. Oncology has been consulted. - Constitutional Vitals: Temp Pulse Resp BP Pulse Ox 97.5 F L 84 17 134/72 97 03/09/18 10:40 03/09/18 10:40 03/09/18 10:40 03/09/18 10:40 03/09/18 10:40 Exam: CONSTITUTIONAL:~alert, no acute distress.~HEAD:~normocephalic.~EYES:~no jaundice.~NECK:~no obvious swelling.~HEART:~regular rate and rhythm, no murmurs. ~LUNGS:~bilateral good air entry.~ABDOMEN:~non distended, soft, non tander, no masses pulpable, no organomegaly.~RECTAL EXAM:~Deferred.~EXTREMITIES:~no clubbing, cyanosis or edema.~SKIN:~no stigmata of chronic liver disease.~ NEUROLOGIC:~no obvious focal defect.~~~~ Results - Labs CBC & Chem 7: 03/09/18 04:26 03/09/18 04:26 Labs: Last Result Calcium 8.4 mg/dL (8.6-10.3) L 03/09/18 04:26 Troponin I < 0.03 ng/mL (< 0.04) 03/07/18 12:34 Entire Visit Hgb 7.9 g/dL (12.9-16.9) L D 03/09/18 04: Hct 24.2 % (37.5-50.1) L 03/09/18 04: PT 19.5 Seconds (9.4-12.1) H 03/09/18 04:26 Total Bilirubin 0.3 mg/dL (0.3-1.0) 03/08/18 03:09 AST 16 Units/L (13-39) 03/08/18 03:09 ALT 17 Units/L (7-52) 03/08/18 03:09 Lipase 11 Units/L (11-82) 03/07/18 12:34 - ABG ABG results: PT/INR, D-dimer PT 19.5 Seconds (9.4-12.1) H 03/09/18 04:26 - VTE Reasons for not Prescribing Prophylaxis: Medical contraindication (Upper GI Bleed) Consult Discharge Plan - Plan Referrals: Jay Silveira MD [Primary Care Provider] - (web request sent on 03/08/18) <Pamela Ochoa - Last Filed: 03/09/18 18:24> Date of Encounter: 03/09/18 Time of Encounter: 18:00 - Time Spent With Patient Total time spent is greater than 50% in coordination of care (as documented) at patient's floor/unit and/or counseling patient: - Constitutional Vitals: Temp Pulse Resp BP Pulse Ox 97.8 F 80 17 116/70 95 03/09/18 15:08 03/09/18 15:08 03/09/18 15:08 03/09/18 15:08 03/09/18 15:08 Results - Labs CBC & Chem 7: 03/09/18 12:32 03/09/18 04:26 Labs: Last Result Calcium 8.4 mg/dL (8.6-10.3) L 03/09/18 04:26 Ferritin 49 ng/ml (20-250) 03/09/18 12:32 Troponin I < 0.03 ng/mL (< 0.04) 03/07/18 12:34 Vitamin B12 > 1500 pg/mL (250-1100) H 03/09/18 12:32 Folate > 22.3 ng/mL (3.0-16.0) H 03/09/18 12:32 Stool Occult Blood Positive (Negative) A 03/09/18 10:30 Entire Visit Hgb 8.9 g/dL (12.9-16.9) L 03/09/18 12:32 Hct 27.0 % (37.5-50.1) L 03/09/18 12:32 PT 19.5 Seconds (9.4-12.1) H 03/09/18 04: Ferritin 49 ng/ml (20-250) 03/09/18 12:32 Total Bilirubin 0.3 mg/dL (0.3-1.0) 03/08/18 03:09 AST 16 Units/L (13-39) 03/08/18 03:09 ALT 17 Units/L (7-52) 03/08/18 03:09 Lipase 11 Units/L (11-82) 03/07/18 12:34 Folate > 22.3 ng/mL (3.0-16.0) H 03/09/18 12:32 - ABG ABG results: PT/INR, D-dimer PT 19.5 Seconds (9.4-12.1) H 03/09/18 04:26 - Attending Attestation I have personally performed a face to face evaluation on this patient. I have reviewed and agree with the care plan. History and Exam by me shows: Pt seen feeling better than yesterday. Assessment: Patient with a long segment Thompson now with esophageal mass most probably malignant pending biopsy, being seen by oncology Recommendation: No anticoagulation. Transfuse as needed, follow path.
[2018-03-09 12:00] LABS: Hematocrit 26.9 % (37.5-50.1); Hemoglobin 8.8 g/dL (12.9-16.9)
[2018-03-09 12:47] LABS: Immature Reticulocyte % 39.7 % (11.0-38.0); Retculocyte # 0.11 M/mcL (0.05-0.10); Reticulocyte % 3.9 % (1.6-2.8)
[2018-03-09 12:49] LABS: Hemoglobin 8.9 g/dL (12.9-16.9)
[2018-03-09 14:21] LABS: Folate > 22.3 ng/mL (3.0-16.0); Vitamin B12 > 1500 pg/mL (250-1100)
[2018-03-09 19:48] LABS: Hematocrit 25.3 % (37.5-50.1); Hemoglobin 8.4 g/dL (12.9-16.9)
--- NOTE | 2018-03-09 21:52 | Internal Med Progress Note ---
Date of Encounter: 03/09/18 Time of Encounter: 14:07 - Assessment and plan (1) Upper GI bleed Current Visit: Yes Status: Acute Assessment and plan: GI consulted; appreciate input. S/P EGD with fungating bleeding esophageal mass. Hgb down today. Will monitor serial H/H x 3 and repeat CBC in AM. Type and hold 2 units PRBCs; transfuse Hgb < 7.0 or symptomatic. Continue to hold Coumadin and aspirin. Switch protonix drip to omeprazole BID. Clear liquid diet started and tolerating well; will advance to diabetic diet. Discontinue IVF as tolerating diet. Repeat BMP, CBC, PT/PTT/INR in AM. (2) GERD (gastroesophageal reflux disease) Current Visit: Yes Status: Chronic Assessment and plan: Switched protonix drip to omeprazole BID as per above. Qualifiers: Esophagitis presence: esophagitis presence not specified Qualified Code(s) : K21.9 - Gastro-esophageal reflux disease without esophagitis (3) CKD (chronic kidney disease) stage 3, GFR 30-59 ml/min Current Visit: No Status: Chronic Assessment and plan: Creatinine at baseline. Continue to monitor. Recheck BMP in AM. (4) Elevated lactic acid level Current Visit: Yes Status: Resolved Assessment and plan: Resolved. 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 Consider restarting once Hgb stabilized. Recheck PT/PTT/INR in AM. 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 Continue home levemir at reduced dose of 20 units BID. Advance to diabetic diet. Qualifiers: Diabetes mellitus type: type 2 Diabetes mellitus chcf insulin use: with chcf use Diabetes mellitus complication status: without complication Qualified Code(s): E11.9 - Type 2 diabetes mellitus without complications; Z79.4 - [facility] (current) use of insulin; Z79.4 - terminal operations supervisor ( current) use of insulin; Z79.4 - terminal operations supervisor (current) use of insulin; Z79.4 - [facility] (current) use of insulin - Time Spent With Patient Total time spent is greater than 50% in coordination of care (as documented) at patient's floor/unit and/or counseling patient: less than 15 minutes - Subjective Interval history: Patient had no acute events overnight. He states that scope went well. He feels "great." He wants to go home, but understands that his blood count was low this AM. Daughter is in room today and they states that heme/onc has talked with them. He is tolerating liquid diet without abdominal pain; he wants full diet. He denies chest pain, SOB, abdominal pain, nausea, vomiting, or diarrhea. No more dizziness; he is standing up in room as we speak. He has no complaints. - Constitutional Vitals: Temp Pulse Resp BP Pulse Ox 98.4 F 81 17 153/74 96 03/09/18 20:24 03/09/18 20:24 03/09/18 20:24 03/09/18 20:24 03/09/18 20:24 General appearance: Present: cooperative, A&O X 3, pleasant, no acute distress, answers questions appropriately - Respiratory Respiratory exam: Present: CTAB. Absent: accessory muscle use, rales, rhonchi, wheezes Additional comments: Normal WOB - Cardiovascular Cardiovascular exam: Present: RRR, +S1, +S2. Absent: diastolic murmur, gallop, rubs, systolic murmur Additional comments: No BLE edema - GI/Abdominal GI/Abdominal exam: Present: normal bowel sounds, soft. Absent: distended, hepatomegaly, mass, splenomegaly, tenderness - Psychiatric Psychiatric exam: Present: normal affect, normal mood. Absent: agitated, anxious, depressed - Skin Skin exam: Present: dry, intact, warm. Absent: cyanosis, rash Internal Medicine: Result - Labs CBC & Chem 7: 03/09/18 19:29 03/09/18 04:26 Labs: Short CBC 03/09/18 03/09/18 03/09/18 Range/Units 04:26 11:13 12:32 WBC 7.8 (4.3-11.1) K/mcL Hgb 7.9 L D 8.8 L 8.9 L (12.9-16.9) g/dL Hct 24.2 L 26.9 L 27.0 L (37.5-50.1) % Plt Count 235 (140-400) K/mcL Neutrophils # 4.0 (1.6-8.9) K/mcL 03/09/18 Range/Units 19:29 WBC (4.3-11.1) K/mcL Hgb 8.4 L (12.9-16.9) g/dL Hct 25.3 L (37.5-50.1) % Plt Count (140-400) K/mcL Neutrophils # (1.6-8.9) K/mcL BMP 03/09/18 04:26 Sodium 143 Potassium 3.7 Chloride 110 H Carbon Dioxide 26 BUN 37 H Creatinine 1.76 H Glucose 160 H Calcium 8.4 L - ABG Interpretation ABG results: PT/INR, D-dimer PT 19.5 Seconds (9.4-12.1) H 03/09/18 04:26 - VTE Reasons for not Prescribing Prophylaxis: Medical contraindication (Upper GI Bleed) Consult Discharge Plan - Plan Referrals: Jay Silveira MD [Primary Care Provider] - (web request sent on 03/08/18)
[2018-03-10 05:55] LABS: Basophils # 0.1 K/mcL (0.0-0.2); Basophils % 0.7 %; Eosinophils # 0.6 K/mcL (0.0-0.6); Hematocrit 25.1 % (37.5-50.1); Hemoglobin 8.3 g/dL (12.9-16.9); Immature Granulocytes % 0.4 % (0-4); Lymphocytes # 2.2 K/mcL (0.6-4.6); Lymphocytes % 29.3 %; Mean Corpuscular HGB Conc 33.1 g/dL (31.6-35.5); Mean Corpuscular Hemoglobin 32.7 pg (28.0-33.3); Mean Corpuscular Volume 98.8 fL (83.0-100.0); Mean Platelet Volume 9.2 fL (9.4-12.4); Monocytes # 0.7 K/mcL (0.0-1.3); Monocytes % 9.5 %; Platelet Count 234 K/mcL (140-400); Red Blood Count 2.54 M/mcL (4.19-5.50); Red Cell Distribution Width 14.3 % (11.5-14.5); Segmented Neutrophils % 52.1 %
[2018-03-10 06:17] LABS: Calcium 8.5 mg/dL (8.6-10.3); Potassium 3.8 mEq/L (3.5-5.1)
[2018-03-10 06:31] LABS: INR 1.7; Prothrombin Time 18.1 Seconds (9.4-12.1)
[2018-03-10] MEDS: Insulin LISPRO 300 UNITS/3 ML VIAL SQ SCH ×2 (07:33→12:24)
[2018-03-10] MEDS: Insulin DETEMIR 100 UNIT/ML X5UNITS SQ SCH (09:57)
[2018-03-10 13:29] VITALS: BP 123/66
--- NOTE | 2018-03-10 16:24 | Discharge Summary ---
- NOTES TO OUTPATIENT PROVIDER Notes to Outpatient Provider: Follow up with PCP in 2-3 days after discharge. Recheck CBC (GI bleed) and BMP (CKD) at that time. Follow up with GI as directed. Follow up with Heme/Onc as directed. Orders not resulted at time of discharge: Pending orders 03/11/18 04:00 Basic Metabolic Panel AM 0400 CBC [Complete Blood Count] [HEME] AM 0400 Date of Encounter: 03/10/18 Time of Encounter: 16:22 - Discharge Diagnosis (1) Upper GI bleed Priority: Primary Status: Resolved (2) Esophageal mass Priority: Secondary Status: Acute (3) GERD (gastroesophageal reflux disease) Priority: Secondary Status: Chronic Qualifiers: Esophagitis presence: esophagitis presence not specified Qualified Code(s) : K21.9 - Gastro-esophageal reflux disease without esophagitis (4) CKD (chronic kidney disease) stage 3, GFR 30-59 ml/min Priority: Secondary Status: Chronic (5) Elevated lactic acid level Priority: Secondary Status: Resolved (6) DVT (deep venous thrombosis) Priority: Secondary Status: Chronic Qualifiers: DVT location: lower extremity Affected thrombotic vein of extremity: unspecified vein of extremity Chronicity: chronic Laterality: unspecified laterality Qualified Code(s): 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 Villaseñor is a 87 year old white male admitted for upper GI bleed. He was admitted to general medical floor with telemetry. He was made NPO. Home coumadin was held. He was started on IVF. He was started on protonix drip. GI was consulted. EGD was performed and revealed a medium-sized, fungating and ulcerating mass with stigmata of recent bleeding in lower third of the esophagus. Hemetology/oncology was consulted due to concern for esophageal cancer. His hemoglobin stabilized 2 days after EGD. He was tolerating diet today without any abdominal pain, nausea, vomiting, or melena/hematochezia. He will continue home dose of PPI at discharge, and continue all other home medications. He will follow up with PCP in 2-3 days after discharge. He will follow up with GI and heme/onc as directed. Patient has met maximum benefit of this hospitalization and will be discharged home in stable condition. Discharge discussed with: patient, family, nurse, other (Pharmacist) - Time Spent with Patient Total time spent providing and/or coordinating discharge services: Greater than 30 minutes - Discharge Medications Home Medications: Aspirin 81 mg PO DAILY 06/24/15 [History] Carvedilol [Coreg] 3.125 mg PO BIDWM 06/24/15 [History] Ferrous Sulfate 325 mg PO DAILY 06/24/15 [History] Insulin DETEMIR [Levemir] 43 unit SQ BID 06/24/15 [History] Insulin LISPRO [Humalog] 10 unit SQ DAILY 06/24/15 [History] Isosorbide DInitrate [Isosorbide Dinitrate] 10 mg PO BID 06/24/15 [History] LORazepam [Ativan] 0.5 mg PO Q8H PRN 06/24/15 [History] Omeprazole [PriLOSEC] 20 mg PO DAILY 06/24/15 [History] Warfarin [Coumadin] 3 mg PO [id number] 06/24/15 [History] Nitroglycerin [Nitrostat] 0.4 mg SL Q5M PRN 03/07/18 [History] Warfarin [Coumadin] 1.5 mg PO TH 03/07/18 [History] Allergies/Adverse Reactions: 3 Allergy/AdvReac Type Severity Reaction Status Date / Time ezetimibe [From Zetia] AdvReac Seizure Verified 03/07/18 12:01 lisinopril [From Prinivil] AdvReac Cough Verified 03/07/18 12:01 Qrvngpk-[id number]-Qsn Reductase AdvReac Seizure Verified 03/07/18 12:01 Inhibitor [Statins] Date of admission: 03/10/18 08:36 Primary care physician: Jay Silveira MD Consults: Gastroenterology Hematology/Oncology Discharging clinician: Marin Saucedo Anticipated date of discharge: 03/10/18 - Constitutional Vitals: Temp Pulse Resp BP Pulse Ox 98.0 F 70 15 123/66 94 03/10/18 11:00 03/10/18 11:00 03/10/18 11:00 03/10/18 11:00 03/10/18 11:00 General appearance: Present: cooperative, A&O X 3, pleasant, no acute distress, answers questions appropriately - Respiratory Respiratory exam: Present: CTAB. Absent: accessory muscle use, rales, rhonchi, wheezes Additional comments: Normal WOB - Cardiovascular Cardiovascular exam: Present: RRR, +S1, +S2. Absent: diastolic murmur, gallop, rubs, systolic murmur Additional comments: No BLE edema - GI/Abdominal GI/Abdominal exam: Present: normal bowel sounds, soft. Absent: distended, hepatomegaly, mass, splenomegaly, tenderness - Psychiatric Psychiatric exam: Present: normal affect, normal mood. Absent: agitated, anxious, depressed - Skin Skin exam: Present: dry, intact, warm. Absent: cyanosis, rash - Patient Status Disposition: Home, Self-Care Condition: Good Overall status at discharge: patient is progressing back to baseline - Discharge Instructions Instructions: Gastrointestinal Bleeding (DC), Acute Kidney Injury (DC) Follow Up With: Jay Silveira MD [Primary Care Provider] - (Web requestsed. If you do not hear from your PCP office by Tuesday please call and schedule a hospital follow up) Pamela Ochoa MD [Partnered Physician] - (Office will call you with an appointment date and time) Additional Instructions: Follow up with PCP in 2-3 days after discharge. Recheck CBC (GI bleed) and BMP (CKD) at that time. Follow up with GI as directed. Follow up with Heme/Onc as directed. - Diet and Activity Activity: resume usual activities as tolerated Diet: diabetic diet - VTE Reasons for not Prescribing Prophylaxis: Medical contraindication
--- NOTE | 2018-03-10 17:53 | Electrocardiograph Report ---
[place] [id number] Test Date: 2018-03-07 Pat Name: Christen Villaseñor Department: 102 Room: 2A12 Gender: M Sill Worker: Milly : 1930 Requested By: Ruthie Olmstead Order Number: [id number] Reading MD: Kiki Mayen Measurements Intervals [place] Rate: 90 P: 26 W[place]: 186 QRS: -25 QRSD: 90 T: 44 QT: 360 QTc: 408 Interpretive Statements SINUS RHYTHM WITH SINUS ARRHYTHMIA BORDERLINE LEFT AXIS DEVIATION [QRS AXIS < -20] NONSPECIFIC ST & T-WAVE ABNORMALITY Electronically Signed On 03-10-2018 17:52:00 EDT by Kiki Mayen
== END 2018-03-10 16:38 | disposition home or self-care (01) | DRG 375 ==
LOC: 2ANU 11:55 → EMEROO 11:55 → 2ANU 16:57
PROVIDERS: ADMIT Family Medicine; ATTEND Pediatrics

== ENCOUNTER 2018-05-02 13:45 | Inpatient (IN) ==
[2018-05-02 14:21] LABS: Basophils % 0.6 %; Eosinophils # 0.2 K/mcL (0.0-0.6); Eosinophils % 5.1 %; Hematocrit 41.5 % (37.5-50.1); Hemoglobin 13.9 g/dL (12.9-16.9); Immature Granulocytes % 0.6 % (0-4); Lymphocytes # 0.2 K/mcL (0.6-4.6); Lymphocytes % 7.2 %; Mean Corpuscular HGB Conc 33.5 g/dL (31.6-35.5); Mean Corpuscular Hemoglobin 32.7 pg (28.0-33.3); Mean Corpuscular Volume 97.6 fL (83.0-100.0); Mean Platelet Volume 9.2 fL (9.4-12.4); Monocytes # 0.6 K/mcL (0.0-1.3); Monocytes % 17.2 %; Neutrophils # 2.3 K/mcL (1.6-8.9); Platelet Count 163 K/mcL (140-400); Red Blood Count 4.25 M/mcL (4.19-5.50); Segmented Neutrophils % 69.3 %
[2018-05-02 14:41] LABS: Troponin I 0.03 ng/mL (< 0.04)
[2018-05-02 14:55] LABS: Albumin 4.1 g/dL (3.5-5.7); Albumin/Globulin Ratio 1.2 (1.1-2.2); Bilirubin,Total 0.6 mg/dL (0.3-1.0); Calcium 9.4 mg/dL (8.6-10.3); Globulin 3.5 g/dL (2.4-3.5); Potassium 4.4 mEq/L (3.5-5.1); Total Protein 7.6 g/dL (6.4-8.9)
[2018-05-02] MEDS ORDERED: 0.9 % Sodium Chloride 1,000 ML IVC ONE (15:03)
--- NOTE | 2018-05-02 15:08 | Emergency Department Note ---
Disposition Clinical Impression: Dyspnea Qualifiers: Dyspnea type: shortness of breath Qualified Code(s): R06.02 - Shortness of breath Pulmonary embolism Qualifiers: Pulmonary embolism type: other Chronicity: acute Acute cor pulmonale presence: without acute cor pulmonale Qualified Code(s): I26.99 - Other pulmonary embolism without acute cor pulmonale Disposition: Admitted As Inpatient Condition: Good Referrals: Jay Silveira MD [Primary Care Provider] - Forms: ED Satisfaction Letter Time of Disposition: 18:03 General Adult HPI - General Chief complaint: ED Shortness of Breath/Dyspnea Stated complaint: "SOB, possible PE sent from Oncology" Time Seen by Provider: 05/02/18 14:22 Nursing Notes Reviewed: Yes Vital Signs Reviewed: Yes - History of Present Illness HPI Narrative: Patient undergoing esophageal cancer treatment with radiation. Being sent here by the radiation area for shortness of breath and rule out PE. Does have a history of DVT. Is not on anticoagulation for an episode of hematemesis in February. Does report shortness of breath that is presently worse over the past month. No fevers or chills. Pain Scale: 0 - Related Data Home Medications Medication Instructions Recorded Confirmed Aspirin 81 mg PO DAILY 06/24/15 05/02/18 Insulin LISPRO [Humalog] 10 unit SQ DAILY 06/24/15 05/02/18 Isosorbide DInitrate [Isosorbide 10 mg PO BID 06/24/15 05/02/18 Dinitrate] Nitroglycerin [Nitrostat] 0.4 mg SL Q5M PRN 03/07/18 05/02/18 Carvedilol [Coreg] 3.125 mg PO BID 05/02/18 05/02/18 Fexofenadine HCl 180 mg PO DAILY 05/02/18 05/02/18 Insulin DETEMIR [Levemir] 43 unit SQ BID 05/02/18 05/02/18 Omeprazole [PriLOSEC] 20 mg PO DAILY 05/02/18 05/02/18 Previous Rx's Medication Instructions Recorded Magic Mouthwash [Magic Mouthwash 10 ml PO QID PRN #240 ml 05/01/18 BLM] Allergies Allergy/AdvReac Type Severity Reaction Status Date / Time ezetimibe [From Zetia] AdvReac Seizure Verified 05/02/18 13:49 lisinopril [From Prinivil] AdvReac Cough Verified 05/02/18 13:49 Bsbmdku-Rza-Jky Reductase AdvReac Seizure Verified 05/02/18 13:49 Inhibitor [Statins] All systems ED: reviewed and negative except as stated. Constitutional: Denies: fever, chills ENT ED: Denies: congestion Cardiovascular: Denies: chest pain, palpitations, syncope Respiratory: Reports: cough, dyspnea. Denies: sputum production Gastrointestinal: Denies: abdominal pain, nausea, vomiting, diarrhea Genitourinary: Denies: urgency, dysuria, frequency Musculoskeletal: Denies: back pain, neck pain Past Medical History - Past Medical History Attestation: Yes The following information was validated with the patient. Source: patient Medical history: Reports: cancer, coronary artery disease, DVT, diabetes, GERD, myocardial infarction, renal disease Surgical history: Reports: herniorrhaphy Psychiatric history: Reports: anxiety - Social History Smoking Status: Never smoker Smokeless Tobacco Status: No Alcohol use: Reports: none Drug use: Reports: none Physical Exam - General Limitations: no limitations General appearance: alert, in no apparent distress - Head Head exam: atraumatic, normocephalic, normal inspection - Eye Eye exam: Present: normal appearance, PERRL, EOMI - ENT ENT exam: normal exam, normal oropharynx, mucous membranes moist - Neck Neck exam: Present: normal inspection, full ROM, trachea midline - Chest Chest inspection: Present: normal inspection, symmetric chest wall rise - Respiratory Respiratory exam: Present: normal lung sounds bilaterally. Absent: respiratory distress, accessory muscle use - Cardiovascular Cardiovascular exam: Present: regular rate, normal rhythm, normal heart sounds - Abdominal Exam Abdominal exam: Present: soft, Non-Tender. Absent: tenderness, distention, guarding, rebound, rigidity, organomegaly - Extremities Exam Extremities exam: Present: normal inspection, full ROM, normal capillary refill. Absent: tenderness, pedal edema - Back Exam Back exam: Present: normal inspection, full ROM. Absent: tenderness - Neurological Exam Neurological exam: Present: alert, oriented X3 - Psychiatric Psychiatric exam: Present: normal affect, normal mood - Skin Skin exam: Present: warm, dry, intact, normal color. Absent: rash, cyanosis, diaphoresis, erythema Course Course Narrative: Male patient being sent from the radiation area for rule out PE. He does have a history of esophageal cancer. Had hematemesis with coffee-ground emesis in February. Had to have an endoscopy with cauterization. He was stopped on anticoagulation at that time. He was previously on anticoagulation for 2 DVTs. Works some shortness of breath over the past month. No fevers or chills. Is requiring 2 L of oxygen to maintain oxygen saturation in the mid 90s. Does have oxygen at home and has a history of COPD but he generally does not wear the oxygen. He is well-appearing and in good spirits laughing frequently. Patient has known chronic kidney disease. His creatinine is elevated and his GFR is decreased. We elected to do a VQ scan. The VQ scan is consistent with the patient having a right upper lobe pulmonary embolism. I discussed this with Dr. Dobbins who is on for heme oncology and he suggests that we start the patient on heparin. He was made aware of the patient's bleeding history. He states he will see the patient in consult tomorrow. - Consultations Consultation #1: I spoke with Dr Dobbins. He recommends starting the Pt on sub Q heparin at 5000 units Q8. Time: 17:56 Consultation #2: Jimmy NAPOLES accepted Pt in stable condition. Time: 18:36 Vital Signs Temperature 97.9 F 05/02/18 13:50 Pulse Rate 101 05/02/18 13:50 Respiratory Rate 24 05/02/18 13:50 Blood Pressure 90/51 05/02/18 13:50 O2 Sat by Pulse Oximetry 93 05/02/18 13:50 Temperature 97.9 F 05/02/18 14:12 Pulse Rate 95 05/02/18 16:53 Respiratory Rate 16 05/02/18 16:53 Blood Pressure 116/56 05/02/18 16:53 O2 Sat by Pulse Oximetry 94 05/02/18 16:53 Oxygen Delivery Oxygen Delivery Nasal Cannula Medical Decision Making - Medical Records Medical records reviewed: Yes I reviewed the patient's medical records. - Lab Data Lab results reviewed: Yes I reviewed the patient's lab results. Result diagrams: 05/02/18 14:02 05/02/18 14:02 Lab Results 05/02/18 05/02/18 05/02/18 Range/Units 14:02 14:02 14:02 WBC 3.3 L (4.3-11.1) K/mcL RBC 4.25 (4.19-5.50) M/mcL Hgb 13.9 D (12.9-16.9) g/dL Hct 41.5 (37.5-50.1) % MCV 97.6 (83.0-100.0) fL MCH 32.7 (28.0-33.3) pg MCHC 33.5 (31.6-35.5) g/dL RDW 15.0 H (11.5-14.5) % Plt Count 163 (140-400) K/mcL MPV 9.2 L (9.4-12.4) fL Immature Gran % 0.6 (0-4) % Seg Neutrophils % 69.3 % Lymphocytes % 7.2 % Monocytes % 17.2 % Eosinophils % 5.1 % Basophils % 0.6 % Neutrophils # 2.3 (1.6-8.9) K/mcL Lymphocytes # 0.2 L (0.6-4.6) K/mcL Monocytes # 0.6 (0.0-1.3) K/mcL Eosinophils # 0.2 (0.0-0.6) K/mcL Basophils # 0.0 (0.0-0.2) K/mcL D-Dimer 95852 H (0-500) ng/mLFEU Sodium 138 (136-145) mEq/L Potassium 4.4 (3.5-5.1) mEq/L Chloride 107 (98-107) mEq/L Carbon Dioxide 22 L (23-29) mEq/L BUN 24 H (8-23) mg/dL Creatinine 1.66 H (0.70-1.30) mg/dL Est GFR ( Amer) 48 L (> 60) Est GFR (Non-Af Amer) 40 L (> 60) BUN/Creatinine Ratio 14 (6-26) Glucose 161 H (70-105) mg/dL Calculated Osmolality 294 (280-300) Calcium 9.4 (8.6-10.3) mg/dL Total Bilirubin 0.6 (0.3-1.0) mg/dL AST 18 (13-39) Units/L ALT 11 (7-52) Units/L Alkaline Phosphatase 52 (34-104) Units/L Troponin I 0.03 (< 0.04) ng/mL Serum Total Protein 7.6 (6.4-8.9) g/dL Albumin 4.1 (3.5-5.7) g/dL Globulin 3.5 (2.4-3.5) g/dL Albumin/Globulin Ratio 1.2 (1.1-2.2) - Radiology Data Radiology results reviewed: Yes I reviewed the patient's radiology results. Pulmonary Perfusion Imaging 05/02/18 00:00 IMPRESSION: High probability for pulmonary embolism. Findings were discussed with Dr Chatman at 5:18 pm on 05/02/2018. D/ / 05/02/2018 17:21:33 Andres Pickett MD / earnold Interpreting Provider: Andres Pickett MD Chest X-Ray 05/02/18 15:02 IMPRESSION: No acute cardiopulmonary process identified. D/ / Micah Jurado MD / Micah Jurado MD Interpreting Provider: Micah Jurado MD - EKG Data EKG #1 EKG attestation: Yes I reviewed and interpreted this EKG. EKG results narrative: Normal sinus rhythm at a rate of 99. HI interval is 173. QRS duration is 85. QT is 316. QTC is 372. No signs of acute ischemia. No significant change from previous EKG dated 03/07/2018.
--- NOTE | 2018-05-02 17:03 | Emergency Department Note ---
Disposition Clinical Impression: Dyspnea Qualifiers: Dyspnea type: unspecified Qualified Code(s): R06.00 - Dyspnea, unspecified Disposition: Admitted As Inpatient Referrals: Jay Silveira MD [Primary Care Provider] - Forms: ED Satisfaction Letter General Adult HPI - General Chief complaint: ED Shortness of Breath/Dyspnea Stated complaint: "SOB, possible PE sent from Oncology" Time Seen by Provider: 05/02/18 14:22 - History of Present Illness Pain Scale: 0 - Related Data Home Medications Medication Instructions Recorded Confirmed Aspirin 81 mg PO DAILY 06/24/15 04/26/18 Carvedilol [Coreg] 3.125 mg PO BIDWM 06/24/15 04/26/18 Insulin DETEMIR [Levemir] 43 unit SQ BID 06/24/15 04/26/18 Insulin LISPRO [Humalog] 10 unit SQ DAILY 06/24/15 04/26/18 Isosorbide DInitrate [Isosorbide 10 mg PO BID 06/24/15 04/26/18 Dinitrate] LORazepam [Ativan] 0.5 mg PO Q8H PRN 06/24/15 04/26/18 Omeprazole [PriLOSEC] 20 mg PO DAILY 06/24/15 04/26/18 Nitroglycerin [Nitrostat] 0.4 mg SL Q5M PRN 03/07/18 04/26/18 Previous Rx's Medication Instructions Recorded Lidocaine/Prilocaine [Emla] 1 appl TP AD PRN #30 gm 03/29/18 Ondansetron [Zofran ODT] 8 mg SL Q8H PRN #30 tab 04/13/18 Prochlorperazine Maleate 10 mg PO Q8HR PRN #90 tablet 04/13/18 [Compazine] Magic Mouthwash [Magic Mouthwash 10 ml PO QID PRN #240 ml 05/01/18 BLM] Allergies Allergy/AdvReac Type Severity Reaction Status Date / Time ezetimibe [From Zetia] AdvReac Seizure Verified 05/02/18 13:49 lisinopril [From Prinivil] AdvReac Cough Verified 05/02/18 13:49 Eukcckq-Rqc-Qpd Reductase AdvReac Seizure Verified 05/02/18 13:49 Inhibitor [Statins] Past Medical History - Past Medical History Medical history: Reports: cancer, coronary artery disease, DVT, diabetes, GERD, myocardial infarction, renal disease Surgical history: Reports: herniorrhaphy Psychiatric history: Reports: anxiety - Social History Smoking Status: Never smoker Smokeless Tobacco Status: No Alcohol use: Reports: none Drug use: Reports: none Physical Exam - General General appearance: alert, in no apparent distress Course Vital Signs Temperature 97.9 F 05/02/18 13:50 Pulse Rate 101 05/02/18 13:50 Respiratory Rate 24 05/02/18 13:50 Blood Pressure 90/51 05/02/18 13:50 O2 Sat by Pulse Oximetry 93 05/02/18 13:50 Temperature 97.9 F 05/02/18 14:12 Pulse Rate 95 05/02/18 16:53 Respiratory Rate 16 05/02/18 16:53 Blood Pressure 116/56 05/02/18 16:53 O2 Sat by Pulse Oximetry 94 05/02/18 16:53 Oxygen Delivery Oxygen Delivery Nasal Cannula Medical Decision Making - Lab Data Result diagrams: 05/02/18 14:02 05/02/18 14:02 Lab Results 05/02/18 05/02/18 05/02/18 Range/Units 14:02 14:02 14:02 WBC 3.3 L (4.3-11.1) K/mcL RBC 4.25 (4.19-5.50) M/mcL Hgb 13.9 D (12.9-16.9) g/dL Hct 41.5 (37.5-50.1) % MCV 97.6 (83.0-100.0) fL MCH 32.7 (28.0-33.3) pg MCHC 33.5 (31.6-35.5) g/dL RDW 15.0 H (11.5-14.5) % Plt Count 163 (140-400) K/mcL MPV 9.2 L (9.4-12.4) fL Immature Gran % 0.6 (0-4) % Seg Neutrophils % 69.3 % Lymphocytes % 7.2 % Monocytes % 17.2 % Eosinophils % 5.1 % Basophils % 0.6 % Neutrophils # 2.3 (1.6-8.9) K/mcL Lymphocytes # 0.2 L (0.6-4.6) K/mcL Monocytes # 0.6 (0.0-1.3) K/mcL Eosinophils # 0.2 (0.0-0.6) K/mcL Basophils # 0.0 (0.0-0.2) K/mcL D-Dimer 86397 H (0-500) ng/mLFEU Sodium 138 (136-145) mEq/L Potassium 4.4 (3.5-5.1) mEq/L Chloride 107 (98-107) mEq/L Carbon Dioxide 22 L (23-29) mEq/L BUN 24 H (8-23) mg/dL Creatinine 1.66 H (0.70-1.30) mg/dL Est GFR ( Amer) 48 L (> 60) Est GFR (Non-Af Amer) 40 L (> 60) BUN/Creatinine Ratio 14 (6-26) Glucose 161 H (70-105) mg/dL Calculated Osmolality 294 (280-300) Calcium 9.4 (8.6-10.3) mg/dL Total Bilirubin 0.6 (0.3-1.0) mg/dL AST 18 (13-39) Units/L ALT 11 (7-52) Units/L Alkaline Phosphatase 52 (34-104) Units/L Troponin I 0.03 (< 0.04) ng/mL Serum Total Protein 7.6 (6.4-8.9) g/dL Albumin 4.1 (3.5-5.7) g/dL Globulin 3.5 (2.4-3.5) g/dL Albumin/Globulin Ratio 1.2 (1.1-2.2) Attestation Statement - Attestation Attestation: I examined this patient and my medical decision-making was reviewed with the Resident Physician. I agree with the documented findings, disposition and treatment plan as described except to the extent set forth below. 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 He is 95% on 2LNC. We will obtain a VQ scan to rule out PE secondary to renal funtction. PAtine will be re-evaluted with walk test. IF he becomes hypoxic then he will be admitted, otherwise he will be able to go home like he desires
[2018-05-02] MEDS ORDERED: *HR* Heparin 5,000 UNIT/ML VIAL SQ ONE (17:55)
[2018-05-02] MEDS ORDERED: Naloxone 0.4 MG/ML INJ IVP PRN (19:56)
[2018-05-02] MEDS ORDERED: Nitroglycerin 0.4 MG TAB.SUBL SL PRN (20:00)
[2018-05-02] MEDS ORDERED: 0.9 % Sodium Chloride 1,000 ML IVC SCH (20:00)
--- NOTE | 2018-05-02 20:09 | Internal Med History&Physical ---
Date of Encounter: 05/02/18 Time of Encounter: 20:00 Internal Medicine - H&P: HPI Chief complaint: Shortness of breath Admitted From: Home Plans for Post Hospital Care: Home History of present illness: Mr. Villaseñor is a 87 year old male with recent diagnosis of esophageal cancer with radiation therapy ON to have a radiation session today when he was found to be short of breath and hypoxic and sent to the emergency department for further evaluation. 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 Patient was hypoxic on presentation. He does have home oxygen to use at night but is not using it all the time. D-dimer was elevated. Patient had elevated creatinine so VQ scan was done and it was high probability for pulmonary embolism. On my interviewing the patient he stated that he has been having shortness of breath off and on but this morning he had worse shortness of breath and pain on the right side of his chest for 4 times been improved. He denied any chest pain per se and no headache no blurry vision. He did have some nausea but no vomiting. Patient stated that he is usually active. Oncologist Dr. Dobbins was contacted from the emergency department and maintained ON that the patient had history of GI bleed and he recommended just observation on heparin subcutaneous 5000 units every 8 hours and he will see the patient on consult tomorrow. Past Med Surg Social Fam HX - Past Medical History Medical history: cancer, coronary artery disease, DVT, diabetes, GERD, myocardial infarction, renal disease Additional medical history: ASBESTOSIS, ANXIETY, PANIC ATTACKS, BARRETTS ESOPHAGUS, PERIPHERAL NEUROPATHY, Psychiatric history: anxiety - Past Surgical History Surgical History: herniorrhaphy Additional surgical history: TONSILLECTOMY, HERNIA SURGERY AT AGE 7, TONSILLECTOMY A CHILD - Social History Smoking Status: Never smoker Smokeless Tobacco Status: No Alcohol use: none Drug use: none - Family History Father Adopted: No Family Member Ethnicity: Non- Living Status: Hx Family Cardiac Disorders: No Hx Family Respiratory Disorders: No Hx Family Cancer: Yes Hx Family GI Disorders: No Hx Family Endocrine Disorder: No Hx Family Neuromuscular Disorders: No Hx Family Neurologic Disorders: No Hx Family HEENT Disorders: No Hx Family Autoimmune Disorders: No Internal Medicine - H&P: Meds Aspirin 81 mg PO DAILY 06/24/15 [History] Insulin LISPRO [Humalog] 10 unit SQ DAILY 06/24/15 [History] Isosorbide DInitrate [Isosorbide Dinitrate] 10 mg PO BID 06/24/15 [History] Nitroglycerin [Nitrostat] 0.4 mg SL Q5M PRN 03/07/18 [History] Magic Mouthwash [Magic Mouthwash BLM] 10 ml PO QID PRN #240 ml 05/01/18 [Rx] Carvedilol [Coreg] 3.125 mg PO BID 05/02/18 [History] Fexofenadine HCl 180 mg PO DAILY 05/02/18 [History] Insulin DETEMIR [Levemir] 43 unit SQ BID 05/02/18 [History] Omeprazole [PriLOSEC] 20 mg PO DAILY 05/02/18 [History] 3 Allergy/AdvReac Type Severity Reaction Status Date / Time ezetimibe [From Zetia] AdvReac Seizure Verified 05/02/18 13:49 lisinopril [From Prinivil] AdvReac Cough Verified 05/02/18 13:49 Ywoqucm-Wgc-Pzm Reductase AdvReac Seizure Verified 05/02/18 13:49 Inhibitor [Statins] All Systems PM: A 10-system review of systems was performed and is negative for pertinent findings except as documented above in the HPI. Review of systems: Comprehensive 10 point review of system was done and it was negative other than what was mentioned above - Constitutional Vitals: Temp Pulse Resp BP Pulse Ox 97.7 F 97 16 117/71 92 05/02/18 19:22 05/02/18 19:22 05/02/18 19:22 05/02/18 19:22 05/02/18 19:22 General appearance: Present: A&O X 3 - Head Head exam: Present: atraumatic, normocephalic - Eye Eye exam: Present: PERRL, conjuntiva pink, sclera anicteric Pupils: Present: PERRL - Neck Neck exam general surgery: Present: supple, trachea midline. Absent: lymphadenopathy - Respiratory Respiratory exam: Present: decreased breath sounds, CTAB. Absent: accessory muscle use, rales, rhonchi, wheezes Additional comments: Decreased breath sounds bibasilarly - Cardiovascular Cardiovascular exam: Present: RRR, +S1, +S2. Absent: diastolic murmur, gallop, rubs, systolic murmur - GI/Abdominal GI/Abdominal exam: Present: normal bowel sounds, soft, no peritoneal signs. Absent: distended, tenderness - Extremities Exam Extremities exam: Present: warm, radial pulses palpable and symmetrical. Absent : calf tenderness, cyanotic, pedal edema - Neurological Exam Neurological exam: Present: CN II-XII intact, oriented X3, no focal deficits. Absent: pronater drift, facial droop, speech deficit - Skin Skin exam: Present: dry, intact Internal Med - H&P Results - Labs CBC & Chem 7: 05/02/18 14:02 05/02/18 14:02 - Assessment and plan (1) Acute respiratory failure with hypoxia Current Visit: Yes Status: Acute Assessment and plan: Due to pulmonary embolism. Oxygen as per protocol to keep O2 saturation above 90% Patient has a history of DVT and he was taken off anticoagulation due to hematemesis back in February. Oncology Dr. Dobbins was contacted and he recommended to start the patient on heparin subcutaneous 5000 unit every 8 hours and he will see the patient on consultation Breathing treatment every 6 hours and when necessary Monitor H&H Patient has a history of COPD -currently not in exacerbation (2) Pulmonary embolism Current Visit: Yes Status: Acute Assessment and plan: VQ scan showed high probability, positive for pulmonary embolism in the right upper lobe Heparin subcutaneous 5000 units every 8 hours as per oncology recommendation Monitor H&H Monitor for any signs of bleeding We will check venous Doppler lower extremities bilaterally for further evaluation Oncology consulted Qualifiers: Qualified Code(s): I26.99 - Other pulmonary embolism without acute cor pulmonale (3) Upper gastrointestinal hemorrhage Current Visit: No Status: Acute Assessment and plan: Monitor H&H every 8 hours Monitor for any signs of bleeding Continue PPI twice a day for now (4) Acute kidney injury Current Visit: No Status: Acute Assessment and plan: Superimposed on chronic kidney disease stage III Gentle IV hydration Monitor kidney function tests and avoid nephrotoxic agents (5) Esophageal cancer Current Visit: Yes Status: Acute Assessment and plan: Recently diagnosed. Currently on radiation therapy Oncology consult Qualifiers: Qualified Code(s): C15.9 - Malignant neoplasm of esophagus, unspecified (6) On esomeprazole prophylaxis Current Visit: Yes Status: Acute Assessment and plan: To continue PPI twice a day for now (7) DVT prophylaxis Current Visit: Yes Status: Acute Assessment and plan: Already on heparin subcutaneous - Time Spent With Patient Total time spent is greater than 50% in coordination of care (as documented) at patient's floor/unit and/or counseling patient:
[2018-05-02] MEDS ORDERED: Ipratropium/Albuterol Neb 3 ML IH PRN (20:19)
[2018-05-02] MEDS: Ipratropium/Albuterol Neb 3 ML IH SCH (20:47)
[2018-05-02] MEDS: Insulin DETEMIR 100 UNIT/ML X5UNITS SQ SCH (21:44)
[2018-05-02] MEDS: *HR* Heparin 5,000 UNIT/ML VIAL SQ SCH (21:48)
[2018-05-02] MEDS ORDERED: Pantoprazole 40 MG VIAL IVP ONE (21:54)
[2018-05-02] MEDS ORDERED: Ondansetron 4 MG/2 ML VIAL IVP PRN (21:54)
[2018-05-02 21:58] LABS: ABG Base Excess -1 mEq/L (-2 to 3); ABG HCO3 23 mEq/L (21-27); ABG Oxygen Saturation 94 % (95-98); ABG PCO2 34 mmHg (35-45); ABG PH 7.44 pH Units (7.32-7.45); ABG PO2 70 mmHg (85-104); ABG TCO2 24 mEq/L (20-26)
[2018-05-03] MEDS: *HR* Heparin 5,000 UNIT/ML VIAL SQ SCH ×3 (05:26→21:06)
[2018-05-03 06:50] LABS: Hematocrit 32.6 % (37.5-50.1); Mean Corpuscular HGB Conc 33.4 g/dL (31.6-35.5); Mean Corpuscular Hemoglobin 32.4 pg (28.0-33.3); Mean Platelet Volume 9.1 fL (9.4-12.4); Platelet Count 131 K/mcL (140-400); Red Blood Count 3.36 M/mcL (4.19-5.50)
[2018-05-03 06:59] LABS: Hemoglobin 10.9 g/dL (12.9-16.9)
[2018-05-03 07:19] LABS: Troponin I < 0.03 ng/mL (< 0.04)
[2018-05-03 07:21] LABS: BUN/Creatinine Ratio 16 (6-26); Blood Urea Nitrogen 20 mg/dL (8-23); Calcium 7.5 mg/dL (8.6-10.3); Carbon Dioxide 21 mEq/L (23-29); Chloride 113 mEq/L (98-107); Chol/HDL Ratio 5.7 (0-4.9); Cholesterol 160 mg/dL (< 200); Glucose 74 mg/dL (70-105); HDL Cholesterol 28 mg/dL (40-59); LDL Cholesterol,Calculated 112 mg/dL (0-99); Magnesium 1.6 mg/dL (1.6-2.6); Osmolality,Calculated 293 (280-300); Potassium 3.6 mEq/L (3.5-5.1); Sodium 141 mEq/L (136-145); Triglycerides 99 mg/dL (< 150); eGFR For African Americans > 60 (> 60); eGFR For Non-African Americans 56 (> 60)
[2018-05-03] MEDS: Insulin DETEMIR 100 UNIT/ML X5UNITS SQ SCH ×2 (08:30→21:06)
[2018-05-03] MEDS: Aspirin 81 MG TAB.CHEW PO SCH (08:35)
[2018-05-03] MEDS: Loratadine 10 MG TABLET PO SCH (08:35)
[2018-05-03] MEDS ORDERED: Insulin LISPRO 300 UNITS/3 ML VIAL SQ SCH (09:00)
[2018-05-03] MEDS ORDERED: Dextrose Gel 15 GM/37.5 ML TUBE PO PRN ×2 (14:10)
[2018-05-03] MEDS ORDERED: D5% in Water 1,000 ML IVC PRN (14:10)
[2018-05-03] MEDS ORDERED: *HR* Dextrose 50 % in Water (Syg) 50 ML SYRINGE IVP PRN (14:10)
--- NOTE | 2018-05-03 14:27 | Oncology Inp Consult Note ---
<Ana Maria Marcus L - Last Filed: 05/03/18 14:24> Date of Encounter: 05/03/18 Time of Encounter: 12:00 Assessment and Plan (1) CKD (chronic kidney disease) stage 3, GFR 30-59 ml/min Status: Chronic Assessment and plan: NEIL on CKD GFR improved today to 56, actually above baseline Gentle hydration (2) DVT (deep venous thrombosis) Status: Chronic Assessment and plan: As discussed in HPI, coumadin placed on hold following his presentation in February for anemia, GIB and diagnosed with esophageal adencarcinoma He does have a history of prior LE DVT Preliminary venous doppler report reveals: Right: There is a chronic thrombus seen in the right popliteal. Left: There is acute thrombus seen in the left superficial femoral and left popliteal vein. There is thrombus also seen in the left posterior tibial and left peroneal vein. Vascular consulted for consideration of filter placement. He is a poor candidate for full AC moving forward secondary to bleeding. Continue Heparin SQ 5000 Q8H. Monitor H&H and for any s/s bleeding. He is slightly anemic/thrombocytopenic today Qualifiers: DVT location: lower extremity Affected thrombotic vein of extremity: unspecified vein of extremity Chronicity: chronic Laterality: unspecified laterality Qualified Code(s): I82.509 - Chronic embolism and thrombosis of unspecified deep veins of unspecified lower extremity (3) Esophageal cancer Status: Acute Assessment and plan: Esophageal adenocarcinoma, moderately to poorly differentiated, nonobstructing distal esophageal mass noted on endoscopy. Currently on definitive chemoradiation therapy s/p second dose of taxol on 04/26. Denies dysphagia/odynophagia Qualifiers: Qualified Code(s): C15.9 - Malignant neoplasm of esophagus, unspecified (4) Pulmonary embolism Status: Acute Assessment and plan: VQ scan showed high probability, positive for pulmonary embolism in the right upper lobe. Unable to have IV contrast secondary to CKD. Plan as above. He is hypoxic, on simple mask at 5L. No acute distress. Plan as above discussed with patient at bedside today. Please refer to Dr. Atkinson attestation below for additional details. Qualifiers: Qualified Code(s): I26.99 - Other pulmonary embolism without acute cor pulmonale - Data of Consult Patient: known to practice within the last 3 years Consult date: 05/03/18 Requesting Physician: Jean Marie Rolle Primary Care Provider: Jay Silveira MD - Consult Narrative Reason for consult: Esophageal adenocarcinoma History of present illness: Mr. Villaseñor is a 87 year old male with past medical history significant for coronary artery disease, DVT, diabetes, GERD, myocardial infarction, renal disease and anxiety. Newly diagnosed esophageal adenocarcinoma following presentation to the ER on 03/07/2018 for coffee ground emesis/melena. EGD on 03/08 revealed a medium sized, fungating, ulcerative mass one half of the circumference of the esophagus, with stigmata of recent bleeding in the lower third esophagus. Pathology revealed Moderately to poorly differentiated adenocarcinoma with a signet ring carcinoma component; invasive. Coumadin placed on hold at that time secondary to GI bleeding and anemia (h/o DVT x2). PET- Just below the juana, mid esophageal mass demonstrates maximum SUV of 7.1. Hypermetabolic superior mediastinal, AP window, bilateral hilar, and mid paraesophageal lymph nodes. A small distal paraesophageal lymph node near the gastroesophageal junction demonstrates maximum SUV of 3.4. No abnormal uptake within the lungs. ABDOMEN/PELVIS: A portacaval lymph node demonstrates maximum SUV of 4.8. 04/13/18--patient was seen at [facility] for further evaluation prior to beginning chemoradiation here. Surgery was not recommended to really due to his age, comorbidities, distant lymph node uptake in PET scan. Concurrent definitive chemoradiation therapy followed by PET imaging is recommended. 04/19/18--s/p taxol first week of chemoradiotherapy. He received his second dose of taxol on 04/26. He presented to [facility] ER on 05/02/18 following recommendation from radiation caregivers secondary to his SOB and hypoxia. VQ scan showed high probability, positive for pulmonary embolism in the right upper lobe. Unable to have IV contrast secondary to CKD Secondary to his history of anemia, GIB, current esophageal mass- heparin subcutaneous 5000 units every 8 hours was recommended per Dr. Dobbins in ER. Preliminary venous doppler report reveals: Right: There is a chronic thrombus seen in the right popliteal. Left: There is acute thrombus seen in the left superficial femoral and left popliteal vein. There is thrombus also seen in the left posterior tibial and left peroneal vein. Past Med Surg Social Fam HX - Past Medical History Medical history: cancer, coronary artery disease, DVT, diabetes, GERD, myocardial infarction, renal disease Additional medical history: ASBESTOSIS, ANXIETY, PANIC ATTACKS, BARRETTS ESOPHAGUS, PERIPHERAL NEUROPATHY, Psychiatric history: anxiety - Past Surgical History Surgical History: herniorrhaphy Additional surgical history: TONSILLECTOMY, HERNIA SURGERY AT AGE 7, TONSILLECTOMY A CHILD - Social History Smoking Status: Never smoker Smokeless Tobacco Status: No Alcohol use: none Drug use: none - Family History Father Adopted: No Family Member Ethnicity: Non- Living Status: Hx Family Cardiac Disorders: No Hx Family Respiratory Disorders: No Hx Family Cancer: Yes Hx Family GI Disorders: No Hx Family Endocrine Disorder: No Hx Family Neuromuscular Disorders: No Hx Family Neurologic Disorders: No Hx Family HEENT Disorders: No Hx Family Autoimmune Disorders: No Medications and Allergies Aspirin 81 mg PO DAILY 06/24/15 [History] Insulin LISPRO [Humalog] 10 unit SQ DAILY 06/24/15 [History] Isosorbide DInitrate [Isosorbide Dinitrate] 10 mg PO BID 06/24/15 [History] Nitroglycerin [Nitrostat] 0.4 mg SL Q5M PRN 03/07/18 [History] Magic Mouthwash [Magic Mouthwash BLM] 10 ml PO QID PRN #240 ml 05/01/18 [Rx] Carvedilol [Coreg] 3.125 mg PO BID 05/02/18 [History] Fexofenadine HCl 180 mg PO DAILY 05/02/18 [History] Insulin DETEMIR [Levemir] 43 unit SQ BID 05/02/18 [History] Omeprazole [PriLOSEC] 20 mg PO DAILY 05/02/18 [History] 3 Allergy/AdvReac Type Severity Reaction Status Date / Time ezetimibe [From Zetia] AdvReac Seizure Verified 05/02/18 13:49 lisinopril [From Prinivil] AdvReac Cough Verified 05/02/18 13:49 Jslebnh-Cba-Utg Reductase AdvReac Seizure Verified 05/02/18 13:49 Inhibitor [Statins] Constitutional: Present: fatigue, weakness. Absent: chills, fever(s) Additional comments: fall at home about 2 weeks ago Eyes: Absent: change in vision Nose, mouth and throat: Absent: dysphagia Cardiovascular: Present: dyspnea on exertion. Absent: chest pain Respiratory: Present: dyspnea on exertion. Absent: hemoptysis Gastrointestinal: Absent: abdominal pain, hematemesis, hematochezia, melena, nausea, vomiting Additional comments: denies dysuria Musculoskeletal: Present: muscle weakness Integumentary: Absent: rash, wounds Neurological: Present: numbness, tingling. Absent: focal weakness Psychiatric: Present: as per HPI Endocrine: Present: as per HPI Hematologic/Lymphatic: Present: as per HPI Oncology - Exam - Constitutional Vitals: Temp Pulse Resp BP Pulse Ox 97.4 F L 75 18 113/68 95 05/03/18 10:53 05/03/18 10:53 05/03/18 10:53 05/03/18 11:41 05/03/18 10:53 Oncology - Results Labs: 3 05/03/18 05/03/18 05/03/18 08:20 06:39 06:39 WBC RBC Hgb Hct MCV MCH MCHC RDW Plt Count MPV Sample Site ABG pH ABG pCO2 ABG pO2 ABG HCO3 ABG Total CO2 ABG O2 Saturation ABG Base Excess Leno Test O2 Delivery Device Inspired O2 Sodium 141 Potassium 3.6 Chloride 113 H Carbon Dioxide 21 L BUN 20 Creatinine 1.22 Est GFR ( Amer) > 60 Est GFR (Non-Af Amer) 56 L BUN/Creatinine Ratio 16 Glucose 74 POC Glucose 59 L Calculated Osmolality 293 Calcium 7.5 L Magnesium 1.6 Troponin I < 0.03 B-Natriuretic Peptide 91 Triglycerides 99 Cholesterol 160 LDL Cholesterol, Calc 112 H VLDL Cholesterol, Calc 20 HDL Cholesterol 28 L Cholesterol/HDL Ratio 5.7 H 3 05/03/18 05/03/18 05/02/18 06:39 06:39 21:51 WBC 2.6 L RBC 3.36 L Hgb 10.9 L D Hct 32.6 L MCV 97.0 MCH 32.4 MCHC 33.4 RDW 15.0 H Plt Count 131 L MPV 9.1 L Sample Site R Radial ABG pH 7.44 ABG pCO2 34 L ABG pO2 70 L ABG HCO3 23 ABG Total CO2 24 ABG O2 Saturation 94 L ABG Base Excess -1 Leno Test Positive O2 Delivery Device Oxy Mask Inspired O2 36.0 Sodium Potassium Chloride Carbon Dioxide BUN Creatinine Est GFR ( Amer) Est GFR (Non-Af Amer) BUN/Creatinine Ratio Glucose POC Glucose Calculated Osmolality Calcium Magnesium Troponin I < 0.03 B-Natriuretic Peptide Triglycerides Cholesterol LDL Cholesterol, Calc VLDL Cholesterol, Calc HDL Cholesterol Cholesterol/HDL Ratio 3 05/02/18 20:00 WBC RBC Hgb Hct MCV MCH MCHC RDW Plt Count MPV Sample Site ABG pH ABG pCO2 ABG pO2 ABG HCO3 ABG Total CO2 ABG O2 Saturation ABG Base Excess Leno Test O2 Delivery Device Inspired O2 Sodium Potassium Chloride Carbon Dioxide BUN Creatinine Est GFR ( Amer) Est GFR (Non-Af Amer) BUN/Creatinine Ratio Glucose POC Glucose Calculated Osmolality Calcium Magnesium Troponin I < 0.03 B-Natriuretic Peptide Triglycerides Cholesterol LDL Cholesterol, Calc VLDL Cholesterol, Calc HDL Cholesterol Cholesterol/HDL Ratio Consult Discharge Plan - Plan Referrals: Jay Silveira MD [Primary Care Provider] - <GabrielleCheikhjudie - Last Filed: 05/03/18 16:57> Date of Encounter: 05/03/18 Assessment and Plan (1) Esophageal cancer Status: Acute Assessment and plan: Chemoradiation therapy on hold. He was noted to be short of breath and hospitalized to a VQ scan showing high probability for pulmonary embolism. He had prior history of DVT was not anti-on anti-granulation due to recent diagnosis of esophageal cancer leading and profound anemia at that time. Due to acute DVT recommended placing a filter as patient cannot be adequately anticoagulated due to esophageal cancer, cytopenia associated with ongoing treatment though mild could worsen. Continue subcutaneous heparin for now. We will monitor his clinical status, recommended further anticoagulation considering risks benefits for the long-term. Plan of care discussed with patient bedside who stated understanding. I examined this patient and my medical decision-making was reviewed with the Advanced Practice Nurse, Ana Maria Marcus. I agree with the documented findings, disposition and treatment plan as described except to the extent set forth below. Qualifiers: Qualified Code(s): C15.9 - Malignant neoplasm of esophagus, unspecified - Data of Consult Requesting Physician: Jean Marie Rolle Primary Care Provider: Jay Silveira MD Oncology - Exam - Constitutional Vitals: Temp Pulse Resp BP Pulse Ox 97.4 F L 75 18 113/68 95 05/03/18 10:53 05/03/18 10:53 05/03/18 10:53 05/03/18 11:41 05/03/18 10:53 Oncology - Results Labs: 3 05/03/18 05/03/1818 08:20 06:39 06:39 WBC RBC Hgb Hct MCV MCH MCHC RDW Plt Count MPV Sample Site ABG pH ABG pCO2 ABG pO2 ABG HCO3 ABG Total CO2 ABG O2 Saturation ABG Base Excess Leno Test O2 Delivery Device Inspired O2 Sodium 141 Potassium 3.6 Chloride 113 H Carbon Dioxide 21 L BUN 20 Creatinine 1.22 Est GFR ( Amer) > 60 Est GFR (Non-Af Amer) 56 L BUN/Creatinine Ratio 16 Glucose 74 POC Glucose 59 L Calculated Osmolality 293 Calcium 7.5 L Magnesium 1.6 Troponin I < 0.03 B-Natriuretic Peptide 91 Triglycerides 99 Cholesterol 160 LDL Cholesterol, Calc 112 H VLDL Cholesterol, Calc 20 HDL Cholesterol 28 L Cholesterol/HDL Ratio 5.7 H 3 05/03/18 05/03/18 05/02/18 06:39 06:39 21:51 WBC 2.6 L RBC 3.36 L Hgb 10.9 L D Hct 32.6 L MCV 97.0 MCH 32.4 MCHC 33.4 RDW 15.0 H Plt Count 131 L MPV 9.1 L Sample Site R Radial ABG pH 7.44 ABG pCO2 34 L ABG pO2 70 L ABG HCO3 23 ABG Total CO2 24 ABG O2 Saturation 94 L ABG Base Excess -1 Leno Test Positive O2 Delivery Device Oxy Mask Inspired O2 36.0 Sodium Potassium Chloride Carbon Dioxide BUN Creatinine Est GFR ( Amer) Est GFR (Non-Af Amer) BUN/Creatinine Ratio Glucose POC Glucose Calculated Osmolality Calcium Magnesium Troponin I < 0.03 B-Natriuretic Peptide Triglycerides Cholesterol LDL Cholesterol, Calc VLDL Cholesterol, Calc HDL Cholesterol Cholesterol/HDL Ratio 3 05/02/18 20:00 WBC RBC Hgb Hct MCV MCH MCHC RDW Plt Count MPV Sample Site ABG pH ABG pCO2 ABG pO2 ABG HCO3 ABG Total CO2 ABG O2 Saturation ABG Base Excess Leno Test O2 Delivery Device Inspired O2 Sodium Potassium Chloride Carbon Dioxide BUN Creatinine Est GFR ( Amer) Est GFR (Non-Af Amer) BUN/Creatinine Ratio Glucose POC Glucose Calculated Osmolality Calcium Magnesium Troponin I < 0.03 B-Natriuretic Peptide Triglycerides Cholesterol LDL Cholesterol, Calc VLDL Cholesterol, Calc HDL Cholesterol Cholesterol/HDL Ratio
--- NOTE | 2018-05-03 14:53 | Electrocardiograph Report ---
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
[2018-05-03] MEDS: 0.9 % Sodium Chloride 1,000 ML IVC SCH (15:30)
[2018-05-03] MEDS: Insulin LISPRO 300 UNITS/3 ML VIAL SQ SCH (17:50)
--- NOTE | 2018-05-03 20:23 | Vascular/Endovasc Consult Note ---
Date of Encounter: 05/03/18 Time of Encounter: 18:30 Assessment and Plan (1) DVT (deep venous thrombosis) Current Visit: Yes Status: Chronic The pathophysiology and natural history of venous thromboembolism was discussed with the patient and all questions were answered. The patient has recurrent deep vein thromboses of the bilateral lower extremity. He also has a VQ scan which is high probability for pulmonary embolism. The patient cannot be anticoagulated long-term due to just distal bleeding due to esophageal cancer and chronic anemia. He currently receives heparin every 8 hours. An inferior vena cava filters been recommended to reduce his risk of subsequent pulmonary emboli. The risks, benefits and alternatives were discussed and all questions were answered. The patient expressed understanding and wishes to proceed. Qualifiers: DVT location: lower extremity Affected thrombotic vein of extremity: unspecified vein of extremity Chronicity: chronic Laterality: unspecified laterality Qualified Code(s): I82.509 - Chronic embolism and thrombosis of unspecified deep veins of unspecified lower extremity (2) CKD (chronic kidney disease) stage 3, GFR 30-59 ml/min Current Visit: Yes Status: Chronic We will limit his exposure to intravenous contrast. 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 He was currently on oxygen and denies chest pain or shortness of breath. Qualifiers: Pulmonary embolism type: other Chronicity: acute Acute cor pulmonale presence: without acute cor pulmonale Qualified Code(s): I26.99 - Other pulmonary embolism without acute cor pulmonale (5) Esophageal cancer Current Visit: Yes Status: Chronic Qualifiers: Malignant neoplasm of esophagus location: upper third Qualified Code(s): C15.3 - Malignant neoplasm of upper third of esophagus - History of Present Illness Consult date: 05/03/18 Requesting physician: Ana Maria Marcus Consult reason: Pulmonary embolus Chief complaint: Deep vein thrombosis and pulmonary embolus History of present illness: Mr. Villaseñor is a 87 year old male with multiple medical comorbidities including coronary artery disease, diabetes, hypertension, chronic kidney disease and esophageal cancer. The patient presented to the emergency room on 05/02/2018 with shortness of breath and hypoxia. His VQ scan revealed high probability of pulmonary embolism. Due to the patient's history of multiple deep vein thromboses, anemia and esophageal mass long-term anticoagulation is not recommended. The patient is currently on heparin every 8 hours subcutaneously. Vascular surgery was counseled for consideration for inferior vena cava filter placement. The time of exam the patient denies chest pain or shortness of breath. Past Med Surg Social Fam HX - Past Medical History Medical history: cancer, coronary artery disease, DVT, diabetes, GERD, myocardial infarction, renal disease Additional medical history: ASBESTOSIS, ANXIETY, PANIC ATTACKS, BARRETTS ESOPHAGUS, PERIPHERAL NEUROPATHY, Psychiatric history: anxiety - Past Surgical History Surgical History: herniorrhaphy Additional surgical history: TONSILLECTOMY, HERNIA SURGERY AT AGE 7, TONSILLECTOMY A CHILD - Social History Smoking Status: Never smoker Smokeless Tobacco Status: No Alcohol use: none Drug use: none - Family History Father Adopted: No Family Member Ethnicity: Non- Living Status: Hx Family Cardiac Disorders: No Hx Family Respiratory Disorders: No Hx Family Cancer: Yes Hx Family GI Disorders: No Hx Family Endocrine Disorder: No Hx Family Neuromuscular Disorders: No Hx Family Neurologic Disorders: No Hx Family HEENT Disorders: No Hx Family Autoimmune Disorders: No Mother Living Status: Medications and Allergies Aspirin 81 mg PO DAILY 06/24/15 [History] Insulin LISPRO [Humalog] 10 unit SQ DAILY 06/24/15 [History] Isosorbide DInitrate [Isosorbide Dinitrate] 10 mg PO BID 06/24/15 [History] Nitroglycerin [Nitrostat] 0.4 mg SL Q5M PRN 03/07/18 [History] Magic Mouthwash [Magic Mouthwash BLM] 10 ml PO QID PRN #240 ml 05/01/18 [Rx] Carvedilol [Coreg] 3.125 mg PO BID 05/02/18 [History] Fexofenadine HCl 180 mg PO DAILY 05/02/18 [History] Insulin DETEMIR [Levemir] 43 unit SQ BID 05/02/18 [History] Omeprazole [PriLOSEC] 20 mg PO DAILY 05/02/18 [History] Menthol [Sherman] 7.5 mg MM Q2HR PRN 05/03/18 [History] 3 Allergy/AdvReac Type Severity Reaction Status Date / Time ezetimibe [From Zetia] AdvReac Seizure Verified 05/02/18 13:49 lisinopril [From Prinivil] AdvReac Cough Verified 05/02/18 13:49 Yblcfhy-Rhg-Uyx Reductase AdvReac Seizure Verified 05/02/18 13:49 Inhibitor [Statins] All Systems Review: The remainder of the systems were reviewed and are negative - Constitutional Constitutional: no chills, no fever(s) - EENT Eyes: no blurred vision - Cardiovascular Cardiovascular: no chest pain at rest, no dyspnea at rest - Respiratory Respiratory: cough - Gastrointestinal Gastrointestinal: no abdominal pain Exam Vital Signs, Last 4 Hours Temp Pulse Resp BP Pulse Ox 05/03/18 19:56 98.2 F 86 20 134/72 97 05/03/18 17:01 98.2 F 90 20 161/92 90 05/03/18 16:56 98.5 F 71 20 166/80 97 General: Present: Conversant, No Apparent Distress HEENT: Present: Atraumatic, Trachea midline, Pupils equal Neck: Absent: JVD, Left Carotid bruit, Right Carotid bruit Cardiac: Present: Reg Rate and Rhythm, Normal S1 and S2 Lungs: Present: Decreased breath sounds (Right upper lobe), No Wheeze, Rales, Rhonchi Neuro: Present: Alert and responsive, No focal deficits noted, Motor nerves grossly intact, Sensory nerves grossly intact Abdomen: Present: Soft, Non-tender. Absent: Masses Vascular: Present: Normal capillary refill, Pulse, normal, Edema (Trace edema in the lower extremities). Absent: Cyanosis Skin: Present: No rashes noted on visualized skin Consult Discharge Plan - Plan Referrals: Jay Silveira MD [Primary Care Provider] -
[2018-05-03] MEDS: MENTHOL PO PRN (21:06)
[2018-05-03] MEDS: Magic Mouthwash 10 ML UD Cup PO PRN (21:55)
--- NOTE | 2018-05-03 23:44 | Internal Med Progress Note ---
Date of Encounter: 05/03/18 Time of Encounter: 23:42 - Assessment and plan (1) Pulmonary embolism Current Visit: Yes Status: Acute Assessment and plan: The patient has developed pulmonary embolism due to his underlying esophageal cancer. He has bilateral DVT of lower extremities. He is not a candidate for full anticoagulation, as he had recently GI bleeding. Will insert IVC filter. Qualifiers: Pulmonary embolism type: other Chronicity: acute Acute cor pulmonale presence: without acute cor pulmonale Qualified Code(s): I26.99 - Other pulmonary embolism without acute cor pulmonale (2) Acute respiratory failure with hypoxia Current Visit: Yes Status: Acute Assessment and plan: His acute respiratory failure with hypoxia is secondary to pulmonary embolism. We will continue supplemental oxygen. (3) Esophageal cancer Current Visit: Yes Status: Chronic Assessment and plan: Treatment as per outpatient oncology. This is pallitive treatment. Qualifiers: Malignant neoplasm of esophagus location: upper third Qualified Code(s): C15.3 - Malignant neoplasm of upper third of esophagus (4) Acute kidney injury Current Visit: No Status: Acute Assessment and plan: Better. He is creatinine was 1.66 yesterday. It is 1.22 today. We will continue IV fluids. (5) Hypomagnesemia Current Visit: Yes Status: Acute Assessment and plan: We will give him a IV magnesium sulfate rider. - Time Spent With Patient Total time spent is greater than 50% in coordination of care (as documented) at patient's floor/unit and/or counseling patient: - Subjective Interval history: The patient feels weak. Otherwise, he is not voicing any other problems. He does have a very mild cough but not wheezing. Denies chest pain. Denies abdominal pain, nausea and vomiting. He makes fair amounts of urine. - Constitutional Vitals: Temp Pulse Resp BP Pulse Ox 98.2 F 86 20 134/72 97 05/03/18 19:56 05/03/18 19:56 05/03/18 19:56 05/03/18 19:56 05/03/18 19:56 General appearance: Present: A&O X 3, no acute distress, answers questions appropriately - Respiratory Respiratory exam: Present: CTAB. Absent: accessory muscle use, rales, rhonchi, wheezes - Cardiovascular Cardiovascular exam: Present: RRR, +S1, +S2. Absent: diastolic murmur, gallop, rubs, systolic murmur - GI/Abdominal GI/Abdominal exam: Present: normal bowel sounds, soft, no peritoneal signs. Absent: distended, tenderness - Skin Skin exam: Present: dry, intact Internal Medicine: Result - Labs CBC & Chem 7: 05/04/18 04:00 05/04/18 04:00 Labs: Short CBC 05/03/18 Range/Units 06:39 WBC 2.6 L (4.3-11.1) K/mcL Hgb 10.9 L D (12.9-16.9) g/dL Hct 32.6 L (37.5-50.1) % Plt Count 131 L (140-400) K/mcL BMP 05/03/18 06:39 Sodium 141 Potassium 3.6 Chloride 113 H Carbon Dioxide 21 L BUN 20 Creatinine 1.22 Glucose 74 Calcium 7.5 L Cardiac Enzymes 05/03/18 05/03/18 Range/Units 06:39 06:39 Troponin I < 0.03 < 0.03 (< 0.04) ng/mL - ABG Interpretation ABG results: ABG ABG pH 7.44 pH Units (7.32-7.45) 05/02/18 21:51 ABG pCO2 34 mmHg (35-45) L 05/02/18 21:51 ABG pO2 70 mmHg (85-104) L 05/02/18 21:51 ABG O2 Saturation 94 % (95-98) L 05/02/18 21:51 PT/INR, D-dimer D-Dimer 13404 ng/mLFEU (0-500) H 05/02/18 14:02 Consult Discharge Plan - Plan Referrals: Jay Silveira MD [Primary Care Provider] -
[2018-05-04] MEDS: Insulin LISPRO 300 UNITS/3 ML VIAL SQ SCH ×4 (01:49→17:19)
[2018-05-04] MEDS: MENTHOL PO PRN ×2 (03:26→08:32)
[2018-05-04] MEDS: *HR* Heparin 5,000 UNIT/ML VIAL SQ SCH ×2 (05:32→13:30)
[2018-05-04] MEDS: Magic Mouthwash 10 ML UD Cup PO PRN ×3 (05:32→22:19)
[2018-05-04 06:26] LABS: Hematocrit 33.1 % (37.5-50.1); Hemoglobin 10.7 g/dL (12.9-16.9); Mean Corpuscular HGB Conc 32.3 g/dL (31.6-35.5); Mean Corpuscular Hemoglobin 31.4 pg (28.0-33.3); Mean Corpuscular Volume 97.1 fL (83.0-100.0); Mean Platelet Volume 9.6 fL (9.4-12.4); Platelet Count 168 K/mcL (140-400); Red Blood Count 3.41 M/mcL (4.19-5.50); Red Cell Distribution Width 14.9 % (11.5-14.5)
[2018-05-04 06:32] LABS: INR 1.1; Prothrombin Time 12.1 Seconds (9.4-12.1)
[2018-05-04 06:45] LABS: Calcium 8.4 mg/dL (8.6-10.3); Potassium 4.3 mEq/L (3.5-5.1)
[2018-05-04 08:24] LABS: Eosinophils # 0.2 K/mcL (0.0-0.6); Lymphocytes # 0.3 K/mcL (0.6-4.6); Monocytes # 0.4 K/mcL (0.0-1.3)
[2018-05-04] MEDS: Loratadine 10 MG TABLET PO SCH (08:28)
[2018-05-04] MEDS: Insulin DETEMIR 100 UNIT/ML X5UNITS SQ SCH ×2 (08:29→21:48)
[2018-05-04] MEDS: Aspirin 81 MG TAB.CHEW PO SCH (08:29)
[2018-05-04] MEDS: 0.9 % Sodium Chloride 1,000 ML IVC SCH (10:44)
[2018-05-04] MEDS: *HR* Acetylcysteine 20% 600 MG/3 ML ORAL SYRINGE PO SCH ×2 (10:44→21:46)
[2018-05-04] MEDS ORDERED: 0.9 % Sodium Chloride 1,000 ML ONE (11:46)
[2018-05-04] MEDS ORDERED: Heparin 1,000 UNITS/500 mL 500 ML ONE (11:47)
[2018-05-04] MEDS ORDERED: *HR* Heparin 10,000 UNIT/10 ML VIAL ONE (11:47)
--- NOTE | 2018-05-04 11:52 | Pre-Sedation Evaluation ---
Pre-sedation evaluation - Pre-sedation checklist Date of procedure: 05/04/18 Procedure: filter placement Recent Vitals: Last Vital Signs Temp 97.9 F 05/04/18 11:04 Pulse 81 05/04/18 11:04 Resp 20 05/04/18 11:04 BP 144/84 05/04/18 11:04 Pulse Ox 96 05/04/18 11:04 H&P (including ROS) documented in medical record: Yes Previous reaction to sedatives/anesthetics: No Dietary Status: NPO after Midnight Dentition: full dentition, poor dentition ASA Classification *see protocol: CLASS III-Severe systemic disease Plan of Care: Pt appropriate candidate for procedure/moderate/conscious sedation , Risks/benefits of procedure/sedation discussed w/ patient/family
[2018-05-04] MEDS ORDERED: ISOVUE-250 150 ML INFUS..BTL IV ONE (11:53)
--- NOTE | 2018-05-04 12:36 | Invasive Diagnostic Lab Proc ---
Name: Christen Villaseñor Date of Study: 05/04/2018 Date: 1930 Ht: 178.0 in Medical Record#: [id number] Age: 87 Wt: 93 lb Gender: Male BSA: 2.11 Order #: [id number] BMI: 29.35 Physicians Performing MD: Mika Schultz MD Referring MD: Referring MD: Staff Name Position Time In Rishabh Saucedo RT (R) Scrub Rick Lange RN Monitor Alessandra Malik RN Construction Teacher Scarlett Parmar RN Construction Teacher Rick Lange RN Monitor Indications DVT, Bilateral Procedures Performed IVC FILTER PLACEMENT Pre-Procedure Checklist Plan of Care Patient will tolerate the procedure without complications. Adequate level of comfort will be maintained. Hemodynamics will remain stable Patient will recover from procedure without complications. Respiratory function will be maintained. Cardiac rhythm will remain stable. Patient temperature will be maintained. Patient and/or family have verbalized understanding of the procedure. Patient Education Intravenous Access Time IV Size Location DC'd Fluid/Drip Rate Units RN Rt Subclavian No Allergies Khxrzwq-Phz-Vyj Reductase Inhibitor lisinopril ezetimibe Vital Signs Time BP Systolic BP Diastolic HR O2 Sats ASA 11:53 AM 11:53 AM 11:59 AM 161 100 78 99 12:04 PM 163 89 82 100 12:09 PM 154 91 80 98 12:14 PM 151 85 80 97 12:19 PM 159 84 82 95 12:24 PM 151 81 79 97 Procedure Medications Time Medication Dose Units Method Route 11:53 AM Oxygen 5 L/min Oxy Mask 12:09 PM Lidocaine 2% 9 ml Subcutaneous Helen Score Preprocedure Postprocedure Activity Activity Circulation Circulation Consciousness Consciousness O2 Saturation O2 Saturation Respiratory Respiratory Total Score Total Score Contrast: Isovue 250- 150ml Contrast Amount: 8 ml Fluoro Dose: 144 mGy Procedure Log Time Note Entered By 11:51 AM 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 Bilateral groin prepped with Chloraprep by Rishabh Saucedo (R), then patient was draped. Skin intact. scoates 11:52 AM Physician arrived 11:52 scoates 11:52 AM Meet and greet completed scoates 11:52 AM Sign in performed according to hospital policy. scoates 11:53 AM 11:53 Oxygen at 5 L/min per Oxy Mask by Alessandra Malik RN scoates 11:53 AM Time: 11:53 Is patient comfortable and pain free?: Yes scoates 11:53 AM Time: 11:53LOC: 5 = Fully awake and oriented or at pre-proc level scoates 11:59 AM Procedure start 11:59 scoates 12:08 PM Time: 11:53LOC: 5 = Fully awake and oriented or at pre-proc level scoates 12:09 PM Time: 11:53 Is patient comfortable and pain free?: Yes scoates 12:09 PM Time out perfomed scoates 12:09 PM 12:09 9 ml Lidocaine 2% to right groin Subcutaneous Given By Mika Schultz MD scoates 12:10 PM Patient Charges- ScanSocialt IVC Filter SN/LOT# [id number],Tray Pack and Pulse Oximetry. scoates 12:10 PM Access obtain and IVC Filter sheath inserted Rt Femoral vein. scoates 12:10 PM 0.035 180cm Bentson wire utilized to assist with catheter placement scoates 12:11 PM Inferiorvenacavagram performed. scoates 12:12 PM hand injection 4mL of contrast scoates 12:12 PM IVC Filter inserted into the inferior vena cava scoates 12:12 PM IVC Filter deployed into the inferior vena cava scoates 12:12 PM Hand injection 4 mL of contrast given scoates 12:15 PM Procedure completed at 12:15 scoates 12:16 PM Sign Out completed: Radiation Dose 143.59 mGy Fluoro Time: 0.3 minutes. Isovue 250- 150ml contrast 8 ml given by Mika Schultz MD. Complications: None. Confirmed administered medications:Yes scoates 12:16 PM Venous sheath pulled using manual compression and V+Pad for 15 minutes by Rishabh Saucedo RT (R) scoates 12:16 PM Estimated Blood Loss: minimal scoates 12:17 PM Post Blood Pressure: 151/85 scoates 12:17 PM Post EKG: NSR scoates 12:17 PM 12:17 Post Pulses: Bilateral DP & PT 2+. scoates 12:17 PM Information taught: IVC filter scoates 12:17 PM Education needs: Procedure, Plan of Care, and Responsibilities of Patient in Care scoates 12:17 PM Education methods: Verbal scoates 12:17 PM Education evaluation: Able to repeat information scoates 12:17 PM Patient pain level 0/10 scoates 12:17 PM Site status No bleeding/hematoma - Rt Groin as reported by Scarlett Parmar RN at 12:17 scoates 12:18 PM Complications: None scoates 12:18 PM Fluoro Time: 0.3 minutes scoates 12:18 PM Isovue 250- 150ml contrast 8 ml given by Mika Schultz MD scoates 12:18 PM Radiation Dose 143.59 mGy scoates 12:24 PM Report given to Sydney MOSER. Pt taken to , Room # 31 12:24 scoates 11:58 AM PVIStat 11:58 AM Case Start 11:58 AM Vitals capture started with the following parameters, Patient=Adult, Interval=5 min, Initial Jnoxstty=975 mmHg, Deflation Rate=5 mmHg, Cuff placed on Right Arm 11:59 AM HR=78 bpm, HBGX=724/100 mmhg, SpO2=99 % 12:04 PM HR=82 bpm, XUBP=634/89 mmhg, AvU4=419.0 % 12:09 PM HR=80 bpm, FRJP=988/91 mmhg, SpO2=98.0 % 12:14 PM HR=80 bpm, ZSAY=021/85 mmhg, SpO2=97.0 % 12:19 PM HR=82 bpm, YCYB=557/84 mmhg, SpO2=95 % 12:24 PM HR=79 bpm, RJSK=927/81 mmhg, SpO2=97.0 % 12:28 PM Opsite applied scoates 12:28 PM no bleeding or hematoma noted to right groin scoates 12:29 PM Complications: None scoates 12:29 PM Patient out of room 12:29 scoates Post Procedure Information Blood Pressure: 151/85 mmHg Rhythm: NSR Site Checks Time Location Status Staff Sheath In? Note 12:17:00 PM Rt Groin No bleeding/hematoma Scarlett Parmar RN Pulses Time Site Pre Procedure Post Procedure Note Bilateral DP, PT, & Rad 2+ 12:17:00 PM Bilateral DP & PT 2+ Updated by Scarlett Saldaña RN on 05/04/2018 12:29:25 PM electronically signed on 05/04/2018 12:30:35 PM with status of Final
--- NOTE | 2018-05-04 17:38 | Oncology Inp Progress Note ---
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 Left: There is acute thrombus seen in the left superficial femoral and left popliteal vein. There is thrombus also seen in the left posterior tibial and left peroneal vein. S/P IVC filter placement today without complication, he is a high risk candidate for full AC moving forward secondary to risk for bleeding. Monitor H&H and for any s/s bleeding. He is slightly anemic but this is stable. Discussed with treating radiation oncologist Dr. Saucedo, following 2 weeks of radiation treatment he may be at lower risk for bleeding, will stop heparin and start lovenox 40 mg BID and monitor closely Qualifiers: DVT location: lower extremity Affected thrombotic vein of extremity: unspecified vein of extremity Chronicity: chronic Laterality: unspecified laterality Qualified Code(s): I82.509 - Chronic embolism and thrombosis of unspecified deep veins of unspecified lower extremity (3) Esophageal cancer Current Visit: Yes Status: Chronic Assessment and plan: Esophageal adenocarcinoma, moderately to poorly differentiated, nonobstructing distal esophageal mass noted on endoscopy. Currently on definitive chemoradiation therapy s/p second dose of taxol on 04/26. Reporting odynophagia today, will start magic mouthwash/carafate, he is receiving a break from radiation until his acute issues resolve so I am hopeful his symptoms will improve. Qualifiers: Malignant neoplasm of esophagus location: upper third Qualified Code(s): C15.3 - Malignant neoplasm of upper third of esophagus (4) Pulmonary embolism Current Visit: Yes Status: Acute Assessment and plan: VQ scan showed high probability, positive for pulmonary embolism in the right upper lobe. Unable to have IV contrast secondary to CKD. Plan as above. Weaning down from simple mask to 4L nasal cannula today. No acute distress. Plan as above discussed with patient at bedside today. Please refer to Dr. Dobbins's attestation below for additional details. 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 Villaseñor is resting in bed. He has titrated down to 4L O2 per NC. He states he coughed all night, has pain with cough. Now reporting mild odynophagia. He reports intermittent chest pain, unchanged since admission. He denies any s/s bleeding such as hematemesis, hemoptysis, melena or hematochezia. - Constitutional Vitals: Vital Signs Temp Pulse Resp BP Pulse Ox 05/04/18 16:13 97.5 F L 79 18 167/89 94 05/04/18 11:04 97.9 F 81 20 144/84 96 05/04/18 07:50 97 05/04/18 07:46 98 F 82 18 158/79 97 05/04/18 04:29 99.1 F 91 18 150/70 94 05/04/18 00:20 97.7 F 85 18 148/72 97 05/03/18 19:56 98.2 F 86 20 134/72 97 Intake and Output 05/04/18 05/04/18 05/04/18 07:59 15:59 23:59 Intake Total 0 / 0 1720 / 1720 120 / 120 Output Total 0 / 0 250 / 250 Balance 0 / 0 1470 / 1470 120 / 120 Intake: IV Fluids 1000 / 1000 0.9 % Sodium Chloride 1,000 ML 1000 / 1000 @ 50 mls/hr IVC .Q20H EDWINA Rx#: [id number] Oral 0 / 0 720 / 720 120 / 120 Output: Urine 0 / 0 250 / 250 Other: Meal Dinner Percent of Meal Consumed 50% # Voids 1 # Bowel Movements 1 Weight 93 kg Blood Glucose* 127 85 148 Patient Weight 05/04/18 23:59 Weight 93 kg General appearance: cooperative, no acute distress, no febrile - Head Head exam: Present: atraumatic - ENT ENT exam: Present: mucous membranes moist - Respiratory Respiratory exam: Present: decreased breath sounds. Absent: respiratory distress - Cardiovascular Cardiovascular exam: Present: RRR, +S1, +S2. Absent: tachycardia - GI/Abdominal GI/Abdominal exam: Present: normal bowel sounds, soft, tenderness. Absent: guarding, rebound - Extremities Exam Extremities exam: Present: pedal edema. Absent: calf tenderness - Neurological Exam Neurological exam: Present: alert, oriented X3, no focal deficits, strengths equal and symetr throughout - Psychiatric Psychiatric exam: Present: normal affect, normal mood - Skin Skin exam: Present: dry, intact, normal color, warm Oncology: Obj Data - Labs CBC & Chem 7: 05/04/18 04:00 05/04/18 04:00 - ABG Interpretation ABG results: ABG ABG pH 7.44 pH Units (7.32-7.45) 05/02/18 21:51 ABG pCO2 34 mmHg (35-45) L 05/02/18 21:51 ABG pO2 70 mmHg (85-104) L 05/02/18 21:51 ABG O2 Saturation 94 % (95-98) L 05/02/18 21:51 PT/INR, D-dimer PT 12.1 Seconds (9.4-12.1) 05/04/18 04:00 D-Dimer [id number] ng/mLFEU (0-500) H 05/02/18 14:02 Consult Discharge Plan - Plan Additional Instructions: Oxygen at 4 L/m nasal cannula. Keep pulse ox above 90%. Referrals: Jay Silveira MD [Primary Care Provider] - Prescriptions: Sucralfate [Carafate] 1 gm PO QIDA #120 tablet <Maru Dobbins S - Last Filed: 05/05/18 16:41> Date of Encounter: 05/05/18 - Constitutional Vitals: Vital Signs Temp Pulse Resp BP Pulse Ox 05/05/18 16:16 98.3 F 75 17 150/81 93 05/05/18 11:34 98.0 F 96 17 148/65 96 05/05/18 08:15 99 05/05/18 07:21 97.7 F 84 18 136/74 99 05/05/18 03:31 98.3 F 86 18 136/76 92 05/04/18 23:09 98.1 F 93 20 90/55 94 05/04/18 19:30 97.9 F 85 18 142/66 94 Intake and Output 05/05/18 05/05/18 05/05/18 07:59 15:59 23:59 Intake Total 1000 / 1000 120 / 120 Output Total 250 / 250 450 / 450 200 / 200 Balance 750 / 750 -330 / -330 -200 / -200 Intake: IV Fluids 1000 / 1000 0.9 % Sodium Chloride 1,000 ML 1000 / 1000 @ 50 mls/hr IVC .Q20H EDWINA Rx#: [id number] Oral 0 / 0 120 / 120 Output: Urine 250 / 250 450 / 450 200 / 200 Other: Meal Breakfast Percent of Meal Consumed 15% Weight 93.8 kg Blood Glucose* 190 174 Patient Weight 05/05/18 23:59 Weight 93.8 kg Oncology: Obj Data - Labs CBC & Chem 7: 05/05/18 14:33 05/05/18 14:33 Labs: Laboratory Results - last 24 hr 05/04/18 05/04/18 05/05/18 16:51 20:24 11:52 WBC RBC Hgb Hct MCV MCH MCHC RDW Plt Count MPV Immature Gran % Seg Neutrophils % Lymphocytes % Monocytes % Eosinophils % Basophils % Neutrophils # Lymphocytes # Monocytes # Eosinophils # Basophils # Platelet Estimate Sodium Potassium Chloride Carbon Dioxide BUN Creatinine Est GFR ( Amer) Est GFR (Non-Af Amer) BUN/Creatinine Ratio Glucose POC Glucose 148 H 91 190 H Calculated Osmolality Calcium Total Bilirubin AST ALT Alkaline Phosphatase Serum Total Protein Albumin Globulin Albumin/Globulin Ratio 05/05/18 05/05/18 14:33 14:33 WBC 3.5 L RBC 3.33 L Hgb 10.8 L Hct 32.4 L MCV 97.3 MCH 32.4 MCHC 33.3 RDW 14.9 H Plt Count 180 MPV 8.7 L Immature Gran % 0.9 Seg Neutrophils % 68.7 Lymphocytes % 6.5 Monocytes % 19.3 Eosinophils % 4.0 Basophils % 0.6 Neutrophils # 2.4 Lymphocytes # 0.2 L Monocytes # 0.7 Eosinophils # 0.1 Basophils # 0.0 Platelet Estimate Normal Sodium 138 Potassium 4.4 Chloride 109 H Carbon Dioxide 24 BUN 21 Creatinine 1.41 H Est GFR ( Amer) 58 L Est GFR (Non-Af Amer) 48 L BUN/Creatinine Ratio 15 Glucose 155 H POC Glucose Calculated Osmolality 292 Calcium 8.2 L Total Bilirubin 0.3 AST 11 L ALT 8 Alkaline Phosphatase 45 Serum Total Protein 6.0 L Albumin 3.1 L Globulin 2.9 Albumin/Globulin Ratio 1.1 - ABG Interpretation ABG results: ABG ABG pH 7.44 pH Units (7.32-7.45) 05/02/18 21:51 ABG pCO2 34 mmHg (35-45) L 05/02/18 21:51 ABG pO2 70 mmHg (85-104) L 05/02/18 21:51 ABG O2 Saturation 94 % (95-98) L 05/02/18 21:51 PT/INR, D-dimer PT 12.1 Seconds (9.4-12.1) 05/04/18 04:00 D-Dimer 30829 ng/mLFEU (0-500) H 05/02/18 14:02 - Attending Attestation I examined this patient and my medical decision-making was reviewed with the Advanced Practice Nurse. I agree with the documented findings, disposition and treatment plan as described except to the extent set forth below. 1. 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 He has extensive kristian disease within the upper part of esophagus and lower part of the esophagus. Concurrent chemoradiation with weekly carbotaxol Treatment started 04/19/2018 Plan is to give 40 Gy radiation in 20 treatment Received 2 doses of carbotaxol last one 04/26/2018. Last day of radiation around 05/02/2018 2. Admitted with high probability PE in the VQ scan shortness of breath. Venous Doppler showed lower excellent G DVT. He was on anti-cognition the past stopped around February 2018 as of bleeding from esophageal tumor During this admission IVC filter deployed and he tolerated the procedure well Since he is undergoing radiation chances of esophageal cancer bleeding may be low. Started him on Lovenox 40 mg subcutaneous twice a day. We will watch for bleeding. If necessary may increase the dose to 60 mg twice a day. His creatinine is improved currently to 1.4. Lovenox has less clearance with renal insufficiency
[2018-05-04] MEDS ORDERED: Insulin LISPRO 300 UNITS/3 ML VIAL SQ SCH (21:00)
[2018-05-04] MEDS ORDERED: *HR* Enoxaparin 40 MG/0.4 ML SYRINGE SQ SCH (21:00)
--- NOTE | 2018-05-04 23:20 | Internal Med Progress Note ---
Date of Encounter: 05/04/18 Time of Encounter: 23:17 - Assessment and plan (1) Pulmonary embolism Current Visit: Yes Status: Acute Assessment and plan: He has underlying advanced esophageal cancer. He has developed bilateral DVT of legs. IVC filter has been inserted by the surgery today morning. He is not a candidate for anticoagulation due to his recent history of GI bleeding. Qualifiers: Pulmonary embolism type: other Chronicity: acute Acute cor pulmonale presence: without acute cor pulmonale Qualified Code(s): I26.99 - Other pulmonary embolism without acute cor pulmonale (2) Acute respiratory failure with hypoxia Current Visit: Yes Status: Acute Assessment and plan: This problem should get better with time. IVC filter is in place. We will continue supplemental oxygen. (3) Esophageal cancer Current Visit: Yes Status: Chronic Assessment and plan: Treatment as per outpatient oncology. Qualifiers: Malignant neoplasm of esophagus location: upper third Qualified Code(s): C15.3 - Malignant neoplasm of upper third of esophagus (4) Acute kidney injury Current Visit: No Status: Acute Assessment and plan: His oral intake of fluids is relatively poor. We will give him IV fluids at times. (5) Hypomagnesemia Current Visit: Yes Status: Acute Assessment and plan: He will get supplemental IV magnesium sulfate. We will check his magnesium in the morning. - Time Spent With Patient Total time spent is greater than 50% in coordination of care (as documented) at patient's floor/unit and/or counseling patient: - Subjective Interval history: The patient had IVC filter inserted today. We will switch him from nothing by mouth diet to diabetic diet. He feels weak. Denies chest pain. Denies difficulty breathing; using supplemental oxygen at 4 L/min. Denies abdominal pain, nausea and vomiting. He may amounts of urine. - Constitutional Vitals: Temp Pulse Resp BP Pulse Ox 98.1 F 93 20 90/55 94 05/04/18 23:09 05/04/18 23:09 05/04/18 23:05/04/18 23:05/04/18 23:09 General appearance: Present: A&O X 3, no acute distress, answers questions appropriately - Respiratory Respiratory exam: Present: CTAB. Absent: accessory muscle use, rales, rhonchi, wheezes - Cardiovascular Cardiovascular exam: Present: RRR, +S1, +S2. Absent: diastolic murmur, gallop, rubs, systolic murmur - GI/Abdominal GI/Abdominal exam: Present: normal bowel sounds, soft, no peritoneal signs. Absent: distended, tenderness Internal Medicine: Result - Labs CBC & Chem 7: 05/04/18 04:00 05/04/18 04:00 Labs: Short CBC 05/04/18 Range/Units 04:00 WBC 2.9 L (4.3-11.1) K/mcL Hgb 10.7 L (12.9-16.9) g/dL Hct 33.1 L (37.5-50.1) % Plt Count 168 (140-400) K/mcL Neutrophils # 2.0 (1.6-8.9) K/mcL BMP 05/04/18 04:00 Sodium 138 Potassium 4.3 Chloride 108 H Carbon Dioxide 25 BUN 20 Creatinine 1.39 H Glucose 131 H Calcium 8.4 L - ABG Interpretation ABG results: ABG ABG pH 7.44 pH Units (7.32-7.45) 05/02/18 21:51 ABG pCO2 34 mmHg (35-45) L 05/02/18 21:51 ABG pO2 70 mmHg (85-104) L 05/02/18 21:51 ABG O2 Saturation 94 % (95-98) L 05/02/18 21:51 PT/INR, D-dimer PT 12.1 Seconds (9.4-12.1) 05/04/18 04:00 D-Dimer 21394 ng/mLFEU (0-500) H 05/02/18 14:02 - VTE Deep Vein Thrombosis/Pulmonary Embolism Present on Admission: Yes Consult Discharge Plan - Plan Referrals: Jay Silveira MD [Primary Care Provider] -
[2018-05-05] MEDS: 0.9 % Sodium Chloride 1,000 ML IVC SCH (03:20)
[2018-05-05] MEDS: Insulin LISPRO 300 UNITS/3 ML VIAL SQ SCH ×3 (08:13→16:38)
[2018-05-05] MEDS: Loratadine 10 MG TABLET PO SCH (08:15)
[2018-05-05] MEDS: Aspirin 81 MG TAB.CHEW PO SCH (08:15)
[2018-05-05] MEDS: Insulin DETEMIR 100 UNIT/ML X5UNITS SQ SCH (08:15)
[2018-05-05] MEDS: *HR* Acetylcysteine 20% 600 MG/3 ML ORAL SYRINGE PO SCH (09:57)
[2018-05-05] MEDS: Magic Mouthwash 10 ML UD Cup PO PRN (09:57)
[2018-05-05 14:45] LABS: Basophils % 0.6 %; Eosinophils # 0.1 K/mcL (0.0-0.6); Hematocrit 32.4 % (37.5-50.1); Hemoglobin 10.8 g/dL (12.9-16.9); Immature Granulocytes % 0.9 % (0-4); Lymphocytes # 0.2 K/mcL (0.6-4.6); Lymphocytes % 6.5 %; Mean Corpuscular HGB Conc 33.3 g/dL (31.6-35.5); Mean Corpuscular Hemoglobin 32.4 pg (28.0-33.3); Mean Corpuscular Volume 97.3 fL (83.0-100.0); Mean Platelet Volume 8.7 fL (9.4-12.4); Monocytes # 0.7 K/mcL (0.0-1.3); Monocytes % 19.3 %; Neutrophils # 2.4 K/mcL (1.6-8.9); Platelet Count 180 K/mcL (140-400); Red Blood Count 3.33 M/mcL (4.19-5.50); Red Cell Distribution Width 14.9 % (11.5-14.5); Segmented Neutrophils % 68.7 %
[2018-05-05 15:06] LABS: Albumin 3.1 g/dL (3.5-5.7); Albumin/Globulin Ratio 1.1 (1.1-2.2); Bilirubin,Total 0.3 mg/dL (0.3-1.0); Calcium 8.2 mg/dL (8.6-10.3); Globulin 2.9 g/dL (2.4-3.5); Potassium 4.4 mEq/L (3.5-5.1)
[2018-05-05 15:24] LABS: Platelet Estimate Normal (Normal)
--- NOTE | 2018-05-05 15:55 | Discharge Summary ---
- NOTES TO OUTPATIENT PROVIDER Notes to Outpatient Provider: The patient was admitted shortly after he had developed a difficulty getting. We found him to have pulmonary embolism. We did not offer him anticoagulation; he had recently GI bleeding. The patient was found to have a bilateral DVT in the lower extremities. IVC filter was inserted by vascular surgery. The patient has underlying advanced esophageal cancer. He seems to be stable today. He is using supplemental oxygen at 4 L/m nasal cannula; he was using the same at home. Date of Encounter: 05/05/18 Time of Encounter: 15:49 - Discharge Diagnosis (1) Pulmonary embolism Priority: Primary Status: Acute Qualifiers: Pulmonary embolism type: other Chronicity: acute Acute cor pulmonale presence: without acute cor pulmonale Qualified Code(s): I26.99 - Other pulmonary embolism without acute cor pulmonale (2) Acute respiratory failure with hypoxia Priority: Secondary Status: Acute (3) Esophageal cancer Priority: Secondary Status: Chronic Qualifiers: Malignant neoplasm of esophagus location: upper third Qualified Code(s): C15.3 - Malignant neoplasm of upper third of esophagus (4) Acute kidney injury Priority: Secondary Status: Acute (5) Hypomagnesemia Priority: Secondary Status: Acute Hospital course: Mr. Villaseñor is a 87 year old male Discharge discussed with: patient, family, nurse, case management - Time Spent with Patient Total time spent providing and/or coordinating discharge services: Greater than 30 minutes (40 minutes) - Discharge Medications Prescriptions: Sucralfate [Carafate] 1 gm PO QIDAC #120 tablet Home Medications: Aspirin 81 mg PO DAILY 06/24/15 [History] Insulin LISPRO [Humalog] 10 unit SQ TIDWM 06/24/15 [History] Isosorbide DInitrate [Isosorbide Dinitrate] 10 mg PO BID 06/24/15 [History] Nitroglycerin [Nitrostat] 0.4 mg SL Q5M PRN 03/07/18 [History] Magic Mouthwash [Magic Mouthwash BLM] 10 ml PO QID PRN #240 ml 05/01/18 [Rx] Carvedilol [Coreg] 3.125 mg PO BID 05/02/18 [History] Fexofenadine HCl 180 mg PO DAILY 05/02/18 [History] Insulin DETEMIR [Levemir] 43 unit SQ BID 05/02/18 [History] Omeprazole [PriLOSEC] 20 mg PO DAILY 05/02/18 [History] Menthol [[place]] 7.5 mg MM Q2HR PRN 05/03/18 [History] Patient Taking Own Medication 0 each PO Q2H PRN each 05/05/18 [Rx] Sucralfate [Carafate] 1 gm PO QIDAC #120 tablet 05/05/18 [Rx] Allergies/Adverse Reactions: 3 Allergy/AdvReac Type Severity Reaction Status Date / Time ezetimibe [From Zetia] AdvReac Seizure Verified 05/02/18 13:49 lisinopril [From Prinivil] AdvReac Cough Verified 05/02/18 13:49 Inofoty-Bsp-Mbi Reductase AdvReac Seizure Verified 05/02/18 13:49 Inhibitor [Statins] Date of admission: 05/02/18 19:56 Primary care physician: Jay Silveira MD Consults: 05/03/18 14:11 Consult to Vascular Surgery [CONS] Routine Consulting Provider: Vascular Surgery Divina Reason for Consult: consult for IVC filter placement Call Completed: Yes 05/04/18 23:20 Consult to Physical Therapy [CONS] Routine Comment: Evaluate, develop and implement POC Reason for Consult: Debility. He has an advanced esophageal cancer. Does patient have active BEDREST order?: No Is patient medically & hemodynamically stable?: Yes Patient assessed for mobility or mobilized this visit?: No 05/05/18 07:02 Consult to Occupational Therapy [CONS] Routine Comment: Evaluate, develop and implement POC Reason for Consult: DISCHARGE EVAL Does patient have active BEDREST order?: No Is patient medically & hemodynamically stable?: Yes Discharging clinician: Jean Marie Rolle Anticipated date of discharge: 05/05/18 - Constitutional Vitals: Temp Pulse Resp BP Pulse Ox 98.0 F 96 17 148/65 96 05/05/18 11:34 05/05/18 11:34 05/05/18 11:34 05/05/18 11:34 05/05/18 11:34 General appearance: Present: A&O X 3, no acute distress, answers questions appropriately - Respiratory Respiratory exam: Present: CTAB. Absent: accessory muscle use, rales, rhonchi, wheezes - Cardiovascular Cardiovascular exam: Present: RRR, +S1, +S2. Absent: diastolic murmur, gallop, rubs, systolic murmur - GI/Abdominal GI/Abdominal exam: Present: normal bowel sounds, soft, no peritoneal signs. Absent: distended, tenderness - Patient Status Disposition: Home Health Service Condition: Fair Functional capacity at discharge: independent ambulation - Discharge Instructions Follow Up With: Jay Silveira MD [Primary Care Provider] - Additional Instructions: Oxygen at 4 L/m nasal cannula. Keep pulse ox above 90%. - Diet and Activity Activity: resume usual activities as tolerated - VTE Deep Vein Thrombosis/Pulmonary Embolism Present on Admission: Yes
[2018-05-05] MEDS ORDERED: Magic Mouthwash 10 ML UD Cup PO SCH (16:00)
--- NOTE | 2018-05-05 16:13 | Physician Discharge Referral ---
Home Health/Hosp Referral Info Transfer to: Home Health Attending Provider: Teodoro SANDHU Provider in Charge Post Discharge: PCP - Diagnosis (1) Pulmonary embolism Status: Acute (2) Acute respiratory failure with hypoxia Status: Acute (3) Esophageal cancer Status: Chronic (4) Acute kidney injury Status: Acute (5) Hypomagnesemia Status: Acute - Respiratory Orders Oxygen / L per min (At 4 l/min.) Smoking Cessation: Smoking cessation has been advised. For more information, call the [place] Tobacco Quit Line at 8-757-VUEV-NOW. - Diet/Nutrition Diet/Nutrition Orders: Mechanical Soft - Activity Activity Orders: Ambulate - Services Needed Following services are medically necessary services: Nursing, Physical Therapy - Transfer Medications Prescriptions: Sucralfate [Carafate] 1 gm PO QIDAC #120 tablet Home Medications: Aspirin 81 mg PO DAILY 06/24/15 [History] Insulin LISPRO [Humalog] 10 unit SQ TIDWM 06/24/15 [History] Isosorbide DInitrate [Isosorbide Dinitrate] 10 mg PO BID 06/24/15 [History] Nitroglycerin [Nitrostat] 0.4 mg SL Q5M PRN 03/07/18 [History] Magic Mouthwash [Magic Mouthwash BLM] 10 ml PO QID PRN #240 ml 05/01/18 [Rx] Carvedilol [Coreg] 3.125 mg PO BID 05/02/18 [History] Fexofenadine HCl 180 mg PO DAILY 05/02/18 [History] Insulin DETEMIR [Levemir] 43 unit SQ BID 05/02/18 [History] Omeprazole [PriLOSEC] 20 mg PO DAILY 05/02/18 [History] Menthol [[place]] 7.5 mg MM Q2HR PRN 05/03/18 [History] Patient Taking Own Medication 0 each PO Q2H PRN each 05/05/18 [Rx] Sucralfate [Carafate] 1 gm PO QIDAC #120 tablet 05/05/18 [Rx] Allergies/Adverse Reactions: 3 Allergy/AdvReac Type Severity Reaction Status Date / Time ezetimibe [From Zetia] AdvReac Seizure Verified 05/02/18 13:49 lisinopril [From Prinivil] AdvReac Cough Verified 05/02/18 13:49 Cnevnqm-Vmj-Kyj Reductase AdvReac Seizure Verified 05/02/18 13:49 Inhibitor [Statins] Certification: Further, I certify that my clinical findings support that this patient is homebound (i.e. absences from home require considerable and taxing effort and are for medical reasons or taoist services or infrequently or short duration when for other reasons) because: Homebound Reason: Patient requires assistance of a person or device to safely leave home Attestation: My signature below is to certify that this patient is under my care and that I, or nurse practitioner, or a physician's medical office assistant instructor working with me, has a face-to -face encounter with this patient.
[2018-05-05 16:18] VITALS: BP 150/81
[2018-05-05] MEDS: Sucralfate 1 GM TABLET PO SCH ×2 (16:19→16:24)
--- NOTE | 2018-05-05 19:10 | Oncology Inp Progress Note ---
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 Left lower extremity acute deep vein thrombosis left superficial femoral vein through the tibial veins. Also with acute PE as discussed further below. S/P IVC filter placement yesterday without complication, he is a high risk candidate for full AC moving forward secondary to risk for bleeding which led to decision for IVC Monitor H&H and for any s/s bleeding. He is slightly anemic but this has been very stable. He was started on lovenox yesterday following his IVC placement and is tolerating well with no s/s bleeding. Per primary team he is already planned for discharge home today. He will be discharged home on 40 mg Lovenox SQ BID. He understands the s/s of bleeding for which to watch for and if noticed to return to the ED, we are hopeful he will continue to tolerate his AC well and without complication. He will have a close follow up with Dr. Saucedo and/or a provider from the medical oncology team on Tuesday. Qualifiers: DVT location: lower extremity Affected thrombotic vein of extremity: unspecified vein of extremity Chronicity: chronic Laterality: unspecified laterality Qualified Code(s): I82.509 - Chronic embolism and thrombosis of unspecified deep veins of unspecified lower extremity (3) Esophageal cancer Status: Chronic Assessment and plan: Esophageal adenocarcinoma, moderately to poorly differentiated, nonobstructing distal esophageal mass noted on endoscopy. Currently on definitive chemoradiation therapy s/p second dose of taxol on 04/26. Reporting odynophagia today, will start magic mouthwash/carafate, he is receiving a break from radiation until his acute issues resolve so I am hopeful his symptoms will improve. He will follow up with Dr. Saucedo on Tuesday to discuss plan for treatment moving forward and also to assess his overall condition in regards to his PE/ DVT and how well he is tolerating AC. Will also arrange for f/u with treating oncologist Dr. Auguste Qualifiers: Malignant neoplasm of esophagus location: upper third Qualified Code(s): C15.3 - Malignant neoplasm of upper third of esophagus (4) Pulmonary embolism Status: Acute Assessment and plan: VQ scan showed high probability, positive for pulmonary embolism in the right upper lobe. Unable to have IV contrast secondary to CKD. He has weaned down from simple mask to 4L nasal cannula. Oxygen therapy is new to him according to patient although past records show he has previously discharged on 4L sometime ago. No acute distress. His sats are WNL, no tachycardia Overall plan for DVT/PE as discussed above. Please refer to Dr. Albrecht's attestation below for additional details. 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 Villaseñor is having a much better day. His is at his bedside. He denies pain, SOB improving, cough improving, he is able to ambulate about in his room wearing his oxygen. He is on 4L Nasal Cannula. He reports O2 is new for him, however, it appears he has been previously prescribed O2 at 4L on a chronic basis as well. His vitals are stable. Per the primary team he is planned to discharge home today. - Constitutional Vitals: Vital Signs Temp Pulse Resp BP Pulse Ox 05/05/18 16:16 98.3 F 75 17 150/81 93 05/05/18 11:34 98.0 F 96 17 148/65 96 05/05/18 08:15 99 05/05/18 07:21 97.7 F 84 18 136/74 99 05/05/18 03:31 98.3 F 86 18 136/76 92 05/04/18 23:09 98.1 F 93 20 90/55 94 05/04/18 19:30 97.9 F 85 18 142/66 94 Intake and Output 05/05/18 05/05/18 05/05/18 07:59 15:59 23:59 Intake Total 1000 / 1000 120 / 120 Output Total 250 / 250 450 / 450 200 / 200 Balance 750 / 750 -330 / -330 -200 / -200 Intake: IV Fluids 1000 / 1000 0.9 % Sodium Chloride 1,000 ML 1000 / 1000 @ 50 mls/hr IVC .Q20H [facility] Rx#: [id number] Oral 0 / 0 120 / 120 Output: Urine 250 / 250 450 / 450 200 / 200 Other: Meal Breakfast Percent of Meal Consumed 15% Weight 93.8 kg Blood Glucose* 190 174 Patient Weight 05/05/18 23:59 Weight 93.8 kg General appearance: cooperative, no acute distress, no febrile - Head Head exam: Present: atraumatic - ENT ENT exam: Present: mucous membranes moist - Respiratory Respiratory exam: Present: decreased breath sounds, CTAB. Absent: respiratory distress - Cardiovascular Cardiovascular exam: Present: RRR, +S1, +S2. Absent: tachycardia - GI/Abdominal GI/Abdominal exam: Present: normal bowel sounds, soft. Absent: guarding, rebound, tenderness - Extremities Exam Extremities exam: Present: normal inspection. Absent: calf tenderness - Neurological Exam Neurological exam: Present: alert, oriented X3, no focal deficits, strengths equal and symetr throughout - Psychiatric Psychiatric exam: Present: normal affect, normal mood - Skin Skin exam: Present: dry, intact, normal color, warm Oncology: Obj Data - Labs CBC & Chem 7: 05/05/18 14:33 05/05/18 14:33 - ABG Interpretation ABG results: ABG ABG pH 7.44 pH Units (7.32-7.45) 05/02/18 21:51 ABG pCO2 34 mmHg (35-45) L 05/02/18 21:51 ABG pO2 70 mmHg (85-104) L 05/02/18 21:51 ABG O2 Saturation 94 % (95-98) L 05/02/18 21:51 PT/INR, D-dimer PT 12.1 Seconds (9.4-12.1) 05/04/18 04:00 D-Dimer 40085 ng/mLFEU (0-500) H 05/02/18 14:02 Consult Discharge Plan - Plan Instructions: Pulmonary Embolism (DC), Acute Respiratory Distress Syndrome (DC) Additional Instructions: Oxygen at 4 L/m nasal cannula. Keep pulse ox above 90%. PLEASE RETURN TO THE EMERGENCY ROOM IF THERE IS ANY SIGNS OF BLEEDING Referrals: [facility] [Provider Group] - 05/08/18 1:00 pm (Oncology appointment 05/08/18 at 1:00 p.m. Will discuss further information on Lovenox injections) Jay Silveira MD [Primary Care Provider] - (Please call Tuesday morning to schedule a hospital follow up for 5-7 days out. Thank you!) Prescriptions: Sucralfate [Carafate] 1 gm PO QIDAC #120 tablet <Alfredo Albrecht - Last Filed: 05/05/18 21:14> Date of Encounter: 05/05/18 - Constitutional Vitals: Vital Signs Temp Pulse Resp BP Pulse Ox 05/05/18 16:16 98.3 F 75 17 150/81 93 05/05/18 11:34 98.0 F 96 17 148/65 96 05/05/18 08:15 99 05/05/18 07:21 97.7 F 84 18 136/74 99 05/05/18 03:31 98.3 F 86 18 136/76 92 05/04/18 23:09 98.1 F 93 20 90/55 94 Intake and Output 05/05/18 05/05/18 05/06/18 08:59 16:59 00:59 Intake Total 1120 / 1120 Output Total 700 / 700 200 / 200 Balance 420 / 420 -200 / -200 Intake: IV Fluids 1000 / 1000 0.9 % Sodium Chloride 1,000 ML 1000 / 1000 @ 50 mls/hr IVC .Q20H [facility] Rx#: [id number] Oral 120 / 120 Output: Urine 700 / 700 200 / 200 Other: Meal Breakfast Percent of Meal Consumed 15% Weight 93.8 kg Blood Glucose* 126 174 Patient Weight 05/06/18 00:59 Weight 93.8 kg Oncology: Obj Data - Labs CBC & Chem 7: 05/05/18 14:33 05/05/18 14:33 Labs: Laboratory Results - last 24 hr 05/04/18 05/05/18 05/05/18 20:24 08:07 11:52 WBC RBC Hgb Hct MCV MCH MCHC RDW Plt Count MPV Immature Gran % Seg Neutrophils % Lymphocytes % Monocytes % Eosinophils % Basophils % Neutrophils # Lymphocytes # Monocytes # Eosinophils # Basophils # Platelet Estimate Sodium Potassium Chloride Carbon Dioxide BUN Creatinine Est GFR ( Amer) Est GFR (Non-Af Amer) BUN/Creatinine Ratio Glucose POC Glucose 91 126 H 190 H Calculated Osmolality Calcium Total Bilirubin AST ALT Alkaline Phosphatase Serum Total Protein Albumin Globulin Albumin/Globulin Ratio 05/05/18 05/05/18 14:33 14:33 WBC 3.5 L RBC 3.33 L Hgb 10.8 L Hct 32.4 L MCV 97.3 MCH 32.4 MCHC 33.3 RDW 14.9 H Plt Count 180 MPV 8.7 L Immature Gran % 0.9 Seg Neutrophils % 68.7 Lymphocytes % 6.5 Monocytes % 19.3 Eosinophils % 4.0 Basophils % 0.6 Neutrophils # 2.4 Lymphocytes # 0.2 L Monocytes # 0.7 Eosinophils # 0.1 Basophils # 0.0 Platelet Estimate Normal Sodium 138 Potassium 4.4 Chloride 109 H Carbon Dioxide 24 BUN 21 Creatinine 1.41 H Est GFR ( Amer) 58 L Est GFR (Non-Af Amer) 48 L BUN/Creatinine Ratio 15 Glucose 155 H POC Glucose Calculated Osmolality 292 Calcium 8.2 L Total Bilirubin 0.3 AST 11 L ALT 8 Alkaline Phosphatase 45 Serum Total Protein 6.0 L Albumin 3.1 L Globulin 2.9 Albumin/Globulin Ratio 1.1 - ABG Interpretation ABG results: ABG ABG pH 7.44 pH Units (7.32-7.45) 05/02/18 21:51 ABG pCO2 34 mmHg (35-45) L 05/02/18 21:51 ABG pO2 70 mmHg (85-104) L 05/02/18 21:51 ABG O2 Saturation 94 % (95-98) L 05/02/18 21:51 PT/INR, D-dimer PT 12.1 Seconds (9.4-12.1) 05/04/18 04:00 D-Dimer 19476 ng/mLFEU (0-500) H 05/02/18 14:02 - Attending Attestation I examined this patient and my medical decision-making was reviewed with the Advanced Practice Nurse. I agree with the documented findings, disposition and treatment plan as described except to the extent set forth below. Mr. Villaseñor recently diagnosed with esophageal cancer with associated recent history of GI bleed. In addition, has history of DVT. Admitted with acute PE. Has initiated radiation. Secondary to concern of bleeding on anticoagulation, IVC filter placed. Discussed my preference to maintain patient in the hospital on trial of full dose anticoagulation. He declines this. As a compromise, will d/ c on Lovenox 40 mg bid and hopefully will increase to full dose on Tuesday. Will make arrangements for follow-up. Patient is acitvely being d/c.
== END 2018-05-05 19:10 | disposition home health service (06) | DRG 166 ==
LOC: 2ANU 13:45 → EMEROO 13:45 → 2ANU 19:18 → SUATTDRO 19:56
PROVIDERS: ADMIT Nurse Practitioner Family; ATTEND Internal Medicine